=== PATIENT | female | born 1940 | race Caucasian/White ===

== ENCOUNTER 2023-12-23 11:37 | Outpatient (AMB) | payer MEDICARE, SELFPAY ==
--- NOTE | 2023-12-23 09:29 | A.OFFVIS_ITS ---
Vital Signs 12/23/23 11:55 Height 5 ft 5 in Weight 216 lb 0.848 oz BMI 35.9 BP 100/60 Blood Pressure Location Rt brachial Position Sitting Pulse 65 Pulse Source Pulse Oximeter Intake Visit Reasons: Type 2 /CONFIRMED Intake Note: NEW Patient presents today to re-establish treatment for Type 2 Diabetes Mellitus: Last Diabetic eye exam was on: 12/2023 [facility] Last Podiatry exam was on: Does not see a Labor Employment Associate Most recent HbA1c: 7.2%, 12/23/2023 Random Glucose- 138 mg/dL, Today Concrete Pipe Making Machine Operator Required: No Accompanied by: Self / Same As Patient Allergies bacitracin [From Triple Antibiotic] Allergy (Mild, Verified 12/23/23 11:56) Unknown hypochlorous acid [From Avenova] Allergy (Mild, Verified 12/23/23 11:56) Unknown neomycin [From Triple Antibiotic] Allergy (Mild, Verified 12/23/23 11:56) Unknown polymyxin B [From Triple Antibiotic] Allergy (Mild, Verified 12/23/23 11:56) Unknown sodium chloride [From Avenova] Allergy (Mild, Verified 12/23/23 11:56) Unknown HPI Comments Details: 83 YO female who is seen in consultation for T2DM at the request of PCP. Most recent A1c 12/23/2023 is 7.2%. This is down from her previous A1c of 8.3. Initially diagnosed with T2DM at least 5 years go. She was initially prediabetic. Was initially started on treatment with metformin 1000mg bid. Was started on Ozempic titrated to 2.0mg and was on this for a few years. This was stopped when her A1C went up at which time she was started on low dose insulin. Current regimen: Lantus 10 units Metformin a 1000 mg twice daily Checks sugars 3 times per day an hour after eating Average sugar: 133 30 day average no recent lows Treats lows with orange juice. None recently Family history of T2DM in son and uncle Has eyes checked yearly, last eye exam one year ago, scheduled for 01/30, denies retinopathy. Very occasional tingling in left foot (attributes to previous back surgery, no other neuropathy: no numbness or cramping last foot exam today, has pedicures every few months Denies nephropathy, not on [LAUREL/ARB]. Labs not available today Has HLD, on statin Last LDL done recently at [facility] Denies CAD Has sleep apnea on CPAP Diet: Balanced Weight: Lost 40 lb on Ozempic. 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 Mother No problems noted. Social History (Updated 12/23/23 @ 12:04 by AURELIO Herring) Unable to assess alcohol history related to: Unable to respond Patient Tobacco Use Status: Never used Tobacco Physical Exam Vital Signs: Last Vital Signs Pulse 65 12/23/23 11:55 BP 100/60 12/23/23 11:55 BMI result Body Mass Index 35.9 Absence of Cushingoid features. Absence of acromegalic features. Neck exam reveals nl size thyroid about 15 gms. No thyroid nodules palpable. No carotid bruits present. Lungs CTA. Heart S1 S2, Reg R/R. No M/R/ G. Skin exam reveals absence of vitiligo or acanthosis nigricans. Abdominal exam reveals Soft NT/ND with NA BS. No organomegaly present. Const Other: Absence of Cushingoid features. Absence of acromegalic features. Neck exam reveals nl size thyroid about 15 gms. No thyroid nodules palpable. I was not able to appreciate a carotid bruit. Lungs CTA. Heart S1 S2, Reg R/R. No M/R G. Skin exam reveals absence of vitiligo or acanthosis nigricans. No edema Visual exam of foot performed. No ulcerations or open lesions. No inter digit maceration or fissuring. No onychomycosis, no callouses. Sensation intact to monofilament exam. Vibratory sensation is diminished only with right great toe, normal rest of foot with 128 Hz tuning fork. Neck Other: . Extrem Other: Visual exam of foot performed. No ulcerations or open lesions. No onchomycosis, no callouses.Pulses 2 + distally Sensation intact to monofilament exam. Vibratory sensation sensed is intact with 128 Hz tuning fork Results AMB Hemoglobin A1c AMB Hemoglobin A1c 7.2 % Last Edit by AURELIO Herring on 12/23/23 12:12 Results Reviewed Results Reviewed: Laboratory Last Values Glucose (Clinic) 138 mg/dL (60-115) H 12/23/23 12:01 Hgb A1c (Clinic) 7.2 % (4.0-6.0) H 12/23/23 12:10 Assessment & Plan Assessment & Plan (1) Type 2 diabetes mellitus: Code(s): E11.9 - Type 2 diabetes mellitus without complications Category: Medical Plan: 83-year-old type 2 diabetic without microvascular/macrovascular complications presents for consult today with an A1c is 7.2%. This is in reasonable range given her age and she will continue Lantus 10 units along with metformin a 1000 twice daily. She was advised to continue to follow her sugars via freestyle Enedelia and if her morning readings started to creep up she could add 2 units e very 3 days until sugars were in the 04/08/2039 range. She is somewhat limited in her ability to exercise secondary to issues with low back pain but is able to do some yd work and housekeeping chores. Her meal plan is balanced Orders: Orders AMB Hemoglobin A1c Today E11.65 - Type 2 diabetes mellitus with hyperglycemia Patient Instructions: The patient was counseled to always carry a source of suga. The patient was counseled to wear closed toe shoes, never walk barefooted and to inspect the feet daily. For any signs of infection or open wound patient should notify PCP or go to urgent care. The patient was counseled to achieve a target A1C of 7.5% (165 avg). Fasting blood sugars should be 90-140 in the morning meals. Reviewed the relationship between poor diabetic control and the developement of complications Coding Level of Care Code New Pt Level 4 (66473) Complex EM visit Add On G2211 Diagnoses Type 2 diabetes mellitus E11.9 Time Spent (min) 30 Comment Time spent reviewing labs/provider notes, face to face, chart doc
[2023-12-23 11:55] VITALS: BP 100/60; PULSE 65; BMI 35.9
[2023-12-23 12:05] LABS: Glucose, Whole Blood 138 mg/dL (60-115)
== END 2023-12-23 12:45 | disposition home or self-care (01) ==
PROVIDERS: Visit Provider Nurse Practitioner Adult Health
DX: E11.65 Type 2 diabetes mellitus with hyperglycemia (principal); E11.9 Type 2 diabetes mellitus without complications
CPT/HCPCS: 99204; G2211

== ENCOUNTER → 2023-12-23 11:37 | Outpatient (BNVA) | payer MEDICARE, SELFPAY | PROVIDERS: Visit Provider Nurse Practitioner Adult Health | DX: E11.9 Type 2 diabetes mellitus without complications (principal) | CPT/HCPCS: 82947; 83036; 99202 ==

== ENCOUNTER 2024-07-06 13:02 | Outpatient (AMB) | payer MEDICARE, SELFPAY ==
--- NOTE | 2024-07-06 12:28 | A.OFFVIS_ITS ---
Vital Signs 07/06/24 13:04 Height 5 ft 5 in Weight 224 lb 13.944 oz BMI 37.4 BP 120/74 Blood Pressure Location Rt brachial Position Sitting Pulse 98 Pulse Source Pulse Oximeter Pulse Oximetry (%) 91 L Oxygen Delivery Method Room Air Intake Visit Reasons: DM Intake Note: Patient presents today for a follow-up on Type 2 Diabetes Mellitus: Last Diabetic eye exam was on: 12/2023, [facility] Last Podiatry exam was on: Does not see a Inner Diameter Grinder Tool Most recent HbA1c: 7.4%, 07/06/2024 Random Glucose- 137 mg/dL, Today Dehydrogenation Operator Required: No Accompanied by: Self / Same As Patient Allergies bacitracin [From Triple Antibiotic] Allergy (Mild, Verified 07/06/24 13:04) Unknown hypochlorous acid [From Avenova] Allergy (Mild, Verified 07/06/24 13:04) Unknown neomycin [From Triple Antibiotic] Allergy (Mild, Verified 07/06/24 13:04) Unknown polymyxin B [From Triple Antibiotic] Allergy (Mild, Verified 07/06/24 13:04) Unknown sodium chloride [From Avenova] Allergy (Mild, Verified 07/06/24 13:04) Unknown HPI Comments Details: 83 YO female who is seen in consultation for T2DM at the request of PCP. Most recent A1c 07/06/24 7.4%, 12/23/2023 is 7.2%. Initially diagnosed with T2DM prior to 2019. She was initially prediabetic. Was initially started on treatment with metformin 1000mg bid. Was started on Ozempic titrated to 2.0mg and was on this for a few years. This was stopped when her A1C went up at which time she was started on low dose insulin. She recently increased insulin to 12 units due to am readings greater than 150 Current regimen: Lantus 12 units Metformin 1000 mg twice daily Ozempic 0.25mg for 4 weeks freestyle thaddeus 2 average 108 she typically scans just once daily, took sugar once in the evening 132 Treats lows with orange juice. None recently Family history of T2DM in son and uncle Has eyes checked yearly, last eye exam 01/2024, denies retinopathy. Very occasional tingling in left foot (attributes to previous back surgery, no other neuropathy: no numbness or cramping last foot exam today, has pedicures every few months Had duplex done has bakers cyst back of left knee Denies nephropathy, not on [LAUREL/ARB]. 11/2023 EGFR 87 Has HLD, on statin Last LDL 11/2023 LDL 51 Denies CAD: no chest pain, dyspnea or symptoms of claudication had cardiac echo done a few weeks ago Has sleep apnea on CPAP: lately hasn't used due to neck pain, reports not sleeping well and plans to restart c/o neck pain may possibly due a cervical fusion Diet: Balanced Weight: Lost 40 lb on Ozempic. 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 Mother No problems noted. Social History Unable to assess alcohol history related to: Unable to respond Patient Tobacco Use Status: Never used Tobacco Physical Exam Vital Signs: Last Vital Signs Pulse 98 07/06/24 13:04 BP 120/74 07/06/24 13:04 Pulse Ox 91 L 07/06/24 13:04 Oxygen Delivery Method Room Air 07/06/24 13:04 BMI result Body Mass Index 37.4 Results AMB Hemoglobin A1c AMB Hemoglobin A1c 7.4 % Last Edit by AURELIO Herring on 07/06/24 13:29 Results Reviewed Results Reviewed: Laboratory Last Values Glucose (Clinic) 137 mg/dL (60-115) H 07/06/24 13:12 Assessment & Plan Assessment & Plan (1) Type 2 diabetes mellitus: Code(s): E11.9 - Type 2 diabetes mellitus without complications Category: Medical Plan 83 year old with know known macular/microvascular complications with a1c of 7.4%. Will increase ozempic to 5mg and greadually reduce lantus as needed. She was advised that should she need cervical surgery, Ozempic is typically held for 1 week and metformin for several days prior to surgery. The patient had an opportunity to ask questions regarding treatment plan. The patient expressed understanding and agreement with the above treatment plan. The patient is aware they should contact our office by phone for worsening glucose readings or for any low blood sugars which may warrant a change in diabetes medication. Compliance is encouraged with medications and any followup testing/consults which may have been ordered. Orders: Orders AMB Hemoglobin A1c Today E11.9 - Type 2 diabetes mellitus without complications Coding Level of Care Code Est Pt Level 3 (52243) Complex EM visit Add On G2211 Diagnoses Type 2 diabetes mellitus E11.9 Time Spent (min) 25 Comment Time spent reviewing labs/provider notes, face to face, chart doc
[2024-07-06 13:04] VITALS: BP 120/74; PULSE 98; O2SAT 91; BMI 37.4
[2024-07-06 13:17] LABS: Glucose, Whole Blood 137 mg/dL (60-115)
--- OUTSIDE RECORDS SUMMARY | 2024-07-06 14:19 | XMS_ITS | Encounter Summary ---
Author Organization [facility] Address [address] [place] [address] Care Team Providers Care Digital Performance Analyst Name Role Phone Narda Horan EXPLOSIVE OPERATOR BC Primary Care Provider Narda Horan [facility] Unavailable [phone] Wayne Santacruz Unavailable Reason for Visit * Reason Onset Date Comments Refill Request 04/28/2023 Encounter Details Date Type Department Care Team (Late st Contact Info) Description 04/28/2023 Refill [facility] [address] [place] [address] Narda Horan, [address] [phone] Refill Request Social History Tobacco Use Types Packs/Day Years Used Date Smoking Tobacco: Never Assessed Comments:Smoking Status:No c urrent tobacco use Comments Unknown Sex and Gender Information Value Date Recorded Sex Assigned at Female 01/13/2024 10:49 AM EST Legal Sex Female 2:18 PM EDT Gender Identity Female 01/13/2024 10:49 AM EST Sexual Orientation Straight 01/13/2024 10 :49 AM EST documented as of this encounter Miscellaneous Notes * Telephone Encounter - Mary Lou Leyva - 04/28/2023 12:48 PM EST Fax from pharmacy for: Furosemide 20mg Patient's Preferred Pharmacy: [id number] [address] [facility] [address] [place] [phone] Has the patient contacted the pharmacy for this prescription? yes Is the medication active on the patient's med list? Yes- What date was this Rx last filled? unknown How many refills were sent to the pharmacy? unknown Please note that if the criteria above indicates a refill may be available at the pharmacy, PSS should advise the patient to contact their pharmacy for refill. Does the above indicate a refill should be sent to the pharmacy? Yes- Rx is pended to the patient'srequested pharmacy. Routing request to triage. documented in this encounter Plan of Treatment Upcoming Encounters Date Type Department Care Team (Late st Contact Info) Description 09/19/2024 11:15 AM EDT Office Visit [address] [phone] Narda Horan, EXPLOSIVE OPERATOR [address] [address] 4 mo f/u documented as of this encounter Visit Diagnoses Not on filedocumented in this encounter Care Teams Digital Performance Analyst Relationship Specialty Start Date End Date Narad Horan, EXPLOSIVE OPERATOR [address] [place] [address] PCP - General 10/13/22 Narda Horan, EXPLOSIVE OPERATOR [address] [place] [address] PCP - Backup PCP Family Medicine 04/09/23 Wayne Santacruz [address] [place] [address] Ophthalmology 05/18/24 documented as of this encounter
--- OUTSIDE RECORDS SUMMARY | 2024-07-06 14:19 | XMS_ITS | Encounter Summary ---
Author Organization [facility] Address [address] [place] [address] Care Team Providers Care Counterintelligence Specialist Name Role Phone Narda Horan APRN Primary Care Provider Narda Horan APRN Unavailable [phone] Wayne Santacruz Unavailable Encounter Details Date Type Department Care Team (Late st Contact Info) Description 10/22/2007 Orders Only NON FC SA NON FC UNK Provider, Unknown Social History Tobacco Use Types Packs/Day Years Used Date Smoking Tobacco: Never Assessed Comments Unknown Sex and Gender Information Value Date Recorded Sex Assigned at Female 01/13/2024 10:49 AM EST Legal Sex Female 2:18 PM EDT Gender Identity Female 01/13/2024 10:49 AM EST Sexual Orientation Straight 01/13/2024 10 :49 AM EST documented as of this encounter Plan of Treatment Upcoming Encounters Date Type Department Care Team (Late st Contact Info) Description 09/19/2024 11:15 AM EDT Office Visit [facility] [address] [place] [phone] Narda Horan APRN [address] [place] [address] 4 mo f/u documented as of this encounter Visit Diagnoses Not on filedocumented in this encounter Care Teams Counterintelligence Specialist Relationship Specialty Start Date End Date Narda Horan APRN [address] [place] [address] PCP - General 10/13/22 Narda Horan APRN [address] [place] [id number] PCP - Backup PCP Family Medicine 04/09/23 Wayne Santacruz [address] [place] [id number] Ophthalmology 05/18/24 documented as of this encounter
--- OUTSIDE RECORDS SUMMARY | 2024-07-06 14:19 | XMS_ITS | Encounter Summary ---
Author Organization [facility] Address [address] [place] [address] Care Team Providers Care Sausage Maker Name Role Phone Narda Horan BALING MACHINE TENDER BC Primary Care Provider Narda Horan [facility] Unavailable [phone] Wayne Santacruz Unavailable Reason for Visit * Reason Onset Date Comments Refill Request 04/21/2023 Encounter Details Date Type Department Care Team (Late st Contact Info) Description 04/21/2023 Refill [facility] [address] [place] [address] Narda Horan, [address] [phone] Refill Request Social History Tobacco Use Types [...] Telephone Encounter - Mary Lou Leyva - 04/21/2023 11:46 AM EST Fax from pharmacy for: refill Patient's Preferred Pharmacy: [id number] [address] [facility] [address] [facility] [phone] Has the patient contacted the pharmacy for this prescription? yes Is the medication active on the patient's med list? Yes- What date was this Rx last filled? unknown How many refills were sent to the pharmacy? Unknown Please note that if the criteria above [...] Description 09/19/2024 11:15 AM EDT Office Visit [facility] [address] [place] [address] Narda Horan, BALING MACHINE TENDER [address] [address] 4 mo f/u documented as of this encounter Visit Diagnoses Not on filedocumented in this encounter Care Teams Sausage Maker Relationship Specialty Start Date End Date Narda Horan, BALING MACHINE TENDER [address] [place] [address] PCP - General 10/13/22 Narda Horan, BALING MACHINE TENDER [address] [place] [address] PCP - Backup PCP Family Medicine 04/09/23 Wayne Santacruz [address] [place] [address] Ophthalmology 05/18/24 documented as of this encounter
--- OUTSIDE RECORDS SUMMARY | 2024-07-06 14:19 | XMS_ITS | Encounter Summary ---
Author Organization [facility] Address [address] [place] [address] Care Team Providers Care Shingle Catcher Name Role Phone Narda Horan CATALYST IMPREGNATOR BC Primary Care Provider Narda Horan CATALYST IMPREGNATOR BC Unavailable [phone] Wayne Santacruz Unavailable Encounter Details Date Type Department Care Team (Late st Contact Info) Description 06/20/2023 Orders Only [address] [phone] Narda Horan, CATALYST IMPREGNATOR[address] [phone] Social History Tobacco Use Types Packs/Day Years [...] Description 09/19/2024 11:15 AM EDT Office Visit [address] [phone] Narda Horan, [address] [address] 4 mo f/u documented as of this encounter Visit Diagnoses Not on filedocumented in this encounter Care Teams Shingle Catcher Relationship Specialty Start Date End Date Narda Horan, PADMINI [address] [place] [address] PCP - General 10/13/22 Narda Horan, CATALYST IMPREGNATOR [address] [place] [address] PCP - Backup PCP Family Medicine 04/09/23 Wayne Santacruz [address] [place] [address] Ophthalmology 05/18/24 documented as of this encounter
--- OUTSIDE RECORDS SUMMARY | 2024-07-06 14:19 | XMS_ITS | Encounter Summary ---
Author Organization [facility] Address [address] [place] [address] Care Team Providers Care Orthotic Technician Name Role Phone Narda Horan APRN Primary Care Provider Narda Horan APRN Unavailable [phone] Wayne Santacruz Unavailable Encounter Details Date Type Department Care Team (Late st Contact Info) Description 06/21/2008 Orders Only NON FC SA NON FC [...] Description 09/19/2024 11:15 AM EDT Office Visit [facility] [address] [place] [phone] Narda Horan APRN [address] [place] [address] 4 mo f/u documented as of this encounter Visit Diagnoses Not on filedocumented in this encounter Care Teams Orthotic Technician Relationship Specialty Start Date End Date Narda Horan APRN [address] [place] [address] PCP - General 10/13/22 Narda Horan APRN [address] [place] [address] PCP - Backup PCP Family Medicine 04/09/23 Wayne Santacruz [address] [place] [id number] Ophthalmology 05/18/24 documented as of this encounter
--- OUTSIDE RECORDS SUMMARY | 2024-07-06 14:19 | XMS_ITS | Encounter Summary ---
Author Organization [facility] Address [address] [place] [address] Care Team Providers Care Nurse Practical Name Role Phone Narda Horan DIRECTOR ADVANCED BC Primary Care Provider Narda Horan [facility] Unavailable [phone] Wayne Santacruz Unavailable Encounter Details Date Type Department Care Team (Late st Contact Info) Description 04/27/2023 Orders Only [address] [phone] Narda Horan, [address] [phone] Medications Social History Tobacco Use Types Packs/Day Years [...] Description 09/19/2024 11:15 AM EDT Office Visit [address] [phone] Narda Horan, [place] [phone] mo f/u documented as of this encounter Visit Diagnoses Not on filedocumented in this encounter Care Teams Nurse Practical Relationship Specialty Start Date End Date Narda Horan, PADMINI [address] [place] [address] PCP - General 10/13/22 Narda Horan, DIRECTOR ADVANCED [address] [place] [address] PCP - Backup PCP Family Medicine 04/09/23 Wayne Santacruz [address] [place] [address] Ophthalmology 05/18/24 documented as of this encounter
--- OUTSIDE RECORDS SUMMARY | 2024-07-06 14:19 | XMS_ITS | Encounter Summary ---
Author Organization [facility] Address [address] [place] [address] Care Team Providers Care Ramp Service Employee Name Role Phone Narda Horan SCRAP CARRIER BC Primary Care Provider Narda Horan SCRAP CARRIER BC Unavailable [phone] Wayne Santacruz Unavailable Encounter Details Date Type Department Care Team (Late st Contact Info) Description 07/04/2023 Orders Only [address] [phone] Narda Horan, [address] [phone] Social History Tobacco Use Types Packs/Day Years [...] Description 09/19/2024 11:15 AM EDT Office Visit [address] [phone] Narda Horan, [address] [address] 4 mo f/u documented as of this encounter Visit Diagnoses Not on filedocumented in this encounter Care Teams Ramp Service Employee Relationship Specialty Start Date End Date Narda Horan, PADMINI [address] [place] [address] PCP - General 10/13/22 Narda Horan, SCRAP CARRIER [address] [place] [address] PCP - Backup PCP Family Medicine 04/09/23 Wayne Santacruz [address] [place] [address] Ophthalmology 05/18/24 documented as of this encounter
--- OUTSIDE RECORDS SUMMARY | 2024-07-06 14:19 | XMS_ITS | Clinical Summary ---
Author Organization [facility] Address [address] [place] [address] Care Team Providers Care Shade Classifier Name Role Phone Cristi Huggins MD Primary Care Provider [phone] Social History Tobacco Use Types Packs/Day Years Used Date Smoking Tobacco: Never Assessed Sex and Gender Information Value Date Recorded Sex Assigned at Not on file Gender Identity Not on file Sexual Orientation Not on file Job Start Date Occupation Industry Not on file Not on file Not on file Plan of Treatment Health Maintenance Due Date Last Done Comments Depression Screening 1954 Preventative Health Evaluation 1960 DTap / Tdap / Td (1 - Tdap) 1961 Shingrix-Zoster Vaccine (1 o f 2) 1992 Fall Risk Assessment 09/18/2007 Osteoporosis Screening (DEXA Scan) 09/18/2007 Pneumococcal Vaccine (1 of 1 - PCV) 09/18/2007 RSV Adult > 60+ Yrs or (1 - 1-dose 75+ series) 2017 COVID-19 Vaccine (2023-2 5 season) 2023 01/07/2021, 05/09/2020, 04/20/2020 Influenza Vaccine (#1) 2023 Hepatitis B Vaccines Aged Out No long er eligible based on patient's age to complete this topic RSV Ped < 20 months Aged Out No longe r eligible based on patient's age to complete this topic Care Teams Shade Classifier Relationship Specialty Start Date End Date Cristi Huggins MD [address] [place] [id number] PCP - General Family Medicine 01/19/14
--- OUTSIDE RECORDS SUMMARY | 2024-07-06 14:19 | XMS_ITS | Encounter Summary ---
Author Organization [facility] Address [address] [place], [place] [id number] Care Team Providers Care Tug Boat Captain Name Role Phone Narda Horan FINANCIAL OFFICER BC Primary Care Provider Narda Horan [facility] Unavailable [phone] Wayne Santacruz Unavailable Reason for Visit * Reason Onset Date Comments Refill Request 04/27/2023 Encounter Details Date Type Department Care Team (Late st Contact Info) Description 04/27/2023 Refill [facility] [address] [place] [address] Narda Horan, FINANCIAL OFFICER [address] [phone] Refill Request Social History Tobacco Use Types [...] Description 09/19/2024 11:15 AM EDT Office Visit [address] [phone] Narda Horan, FINANCIAL OFFICER [address] [place] [address] 4 mo f/u documented as of this encounter Visit Diagnoses Not on filedocumented in this encounter Care Teams Tug Boat Captain Relationship Specialty Start Date End Date Narda Horan, FINANCIAL OFFICER [address] [phone] PCP - General 10/13/22 Narda Horan, FINANCIAL OFFICER [address] [place] [address] PCP - Backup PCP Family Medicine 04/09/23 Wayne Santacruz [address] [place] [address] Ophthalmology 05/18/24 documented as of this encounter
--- OUTSIDE RECORDS SUMMARY | 2024-07-06 14:19 | XMS_ITS | Encounter Summary ---
Author Organization [facility] Address [address] [place] [address] Care Team Providers Care Cement Despatch Operator Name Role Phone Narda Horan [facility] Primary Care Provider Narda Horan [facility] Unavailable [phone] Wayne Santacruz Unavailable Reason for Visit * Reason Onset Date Comments Refill Request 08/12/2023 Encounter Details Date Type Department Care Team (Late st Contact Info) Description 08/12/[address] [phone] Narda Horan, [address] [address] Refill Request Social History Tobacco Use Types [...] encounter Miscellaneous Notes * Telephone Encounter - Guillermo Calixto - 08/12/2023 11:30 AM EDT Call from patient for: Accu-Chek FastClix Lancets [id number] [id number] [facility] [address] [facility] [address] [facility] [phone] Has the patient contacted the pharmacy for this prescription? {YES: Pt is completely out and need more mariaelena documented in this encounter Plan of Treatment Upcoming Encounters Date Type Department Care Team (Late st Contact Info) Description 09/19/2024 11:15 AM EDT Office Visit [address] [phone] Narda Horan, CLIENT SUPPORT MANAGER [address] [address] 4 mo f/u documented as of this encounter Visit Diagnoses Not on filedocumented in this encounter Care Teams Cement Despatch Operator Relationship Specialty Start Date End Date Narda Horan, CLIENT SUPPORT MANAGER [address] [place] [phone] PCP - General 10/13/22 Narda Horan, CLIENT SUPPORT MANAGER [address] [place] [address] PCP - Backup PCP Family Medicine 04/09/23 Wayne Santacruz [address] [place] [address] Ophthalmology 05/18/24 documented as of this encounter
--- OUTSIDE RECORDS SUMMARY | 2024-07-06 14:20 | XMS_ITS ---
Author Name [facility] Organization Unknown Results Test Name/Text Value Interpretation Date Range Source TSH 2.1uIU/ml Normal [id number] 0.5 - 4.8 [facility] egfr 74 Normal [id number] - [facility] BUN/CREAT RATIO 26 Above high normal [id number] 6 - 25 [facility] CO2 28mmol/L Normal [id number] 22 - 32 [facility] CREATININE 0.8mg/dL Normal [id number] 0.4 - 1.1 [facility] POTASSIUM 4.1mmol/L Normal [id number] 3.3 - 5.3 [facility] GLUCOSE 174mg/dL Above high normal [id number] 65 - 99 [facility] SODIUM 140mmol/L Normal [id number] 133 - 145 [facility] CALCIUM 9.4mg/dL Normal [id number] 8.6 - 10.5 [facility] BUN 21mg/dL Normal [id number] 8 - 23 [facility] CHLORIDE 100mmol/L Normal [id number] 96 - 108 [facility] UM. ALB/CREAT RATIO 6 Normal [id number] 0 - 30 [facility] URINE CREATININE 168mg/dL Normal [id number] 60 - 200 [facility] URINE MICROALBUMIN <12 Normal [id number] 0 - 23 [facility] Hemoglobin A1C 7.7%A1C Above high normal [id number] 4.3 - 6.1 [facility] RBC 4.5M/uL Normal [id number] 3.8 - 5.2 [facility] MCHC 32g/dl Normal [id number] 31 - 35 [facility] PLT 275K/uL Normal [id number] 150 - 450 [facility] MCH 29pg Normal [id number] 27 - 32 [facility] HEMOGLOBIN 12.9g/dL Normal [id number] 11.5 - 15.5 [facility] WBC 8.5K/uL Normal [id number] 3.6 - 11 [facility] HEMATOCRIT 40.6% Normal [id number] 35 - 47 [facility] RDW-CV 13.2% Normal [id number] 12 - 16.1 [facility] MCV 91fL Normal [id number] 80 - 100 [facility] DOUGLAS <12.0 Normal [id number] 0 - 23 [facility] UCR 144mg/dL Normal [id number] 60 - 200 [facility] NA 142mmol/L Normal [id number] 133 - 145 [facility] GLUC 130mg/dL Above high normal [id number] 65 - 99 [facility] CL 103mmol/L Normal [id number] 96 - 108 [facility] BUN 18mg/dL Normal [id number] 8 - 23 [facility] CALC 9.6mg/dL Normal [id number] 8.6 - 10.5 [facility] CO2 29mmol/L Normal [id number] 22 - 32 [facility] B/C 26 Above high normal [id number] 6 - 25 [facility] eGFR 87 Normal [id number] - [facility] K 4mmol/L Normal [id number] 3.3 - 5.3 [facility] CREAT 0.7mg/dL Normal [id number] 0.4 - 1.1 [facility] HDL 47mg/dL Below low normal [id number] 50 - 80 [facility] Non-HDL 67mg/dl Normal [id number] 0 - 130 [facility] TRIG 78mg/dL Normal [id number] 0 - 150 [facility] LDL 51mg/dL Normal [id number] 0 - 100 [facility] VLDL 16mg/dL Normal [id number] 5 - 40 [facility] CHOL 114mg/dL Normal [id number] 0 - 199 [facility] CHOL/HDL RATIO 2.[id number] [facility] A1C 7.9%A1C Above high normal [id number] 4.3 - 6.1 [facility] HGB 12.4g/dL Normal [id number] 11.5 - 15.5 [facility] HCT 39.8% Normal [id number] 35 - 47 [facility] POCT GLUCOSE 183mg/dL Normal [id number] 70 - 200 [facility] History of Medication Use Medication Directions Dispensed Refills Start Date End Date Status betamethasone acet,sod phos (CELESTONE) 6 mg/mL injection 6 mg 6 mg, intra-articular, One-time injection, 1 dose, Starting on Thu07/20/23 at 0915, Until Thu07/20/23 at 0915 023 2023 completed betamethasone acet,sod phos (CELESTONE) 6 mg/mL injection 12 mg 023 2022 completed hydroCHLOROthiazide (HYDRODIURIL) tablet Take 25 mg by mouth. active vitamin B-12 1,000 mcg tablet Take 1,000 mcg by mouth. 021 active Furosemide 20 MG Oral Tablet Furosemide 20 MG Oral TabletTAKE 1 TABLET BY MOUTH UP TO 3 TIMES A WEEK NEEDED Quantity: 20 Refills: Nikko Hurley APRN Start : 51-Wet-5568Qmamjd completed Ibuprofen 800 MG Oral Tablet Ibuprofen 800 MG Oral Tablet; 1 (one) Tablet three times daily, as needed for 7 days Quantity: 21 {Tablet}Refills: 0Ordered: [id number], KARAStart: 29-Sep-2019 End: 67-Hkv-7994Bdqcws: InactiveComments: Medication taken as needed. 020 2019 suspended meloxicam 15 mg tablet meloxicam 15 mg tablet; 1 (one) Tablet daily for 30 days Quantity: 30 {Tablet}Refills: 0Ordered: [id number], KARAStart: 01-Apr-2024 020 2019 active Nystop 249105 UNIT/GM External Powder Nystop 583371 UNIT/GM External PowderAPPLY ONE APPLICATION TO AFFECTED AREA DAILY Quantity: 15 Refills: 2SNikko love APRN Start : 4-Zol-4646Nwwgmr 019 completed Medrol 4 MG Oral Tablet Therapy Pack Medrol 4 MG Oral Tablet Therapy Pack; 1 (one) Packet use as directed per instructions in pack for 5 days Quantity: 21 {Packet}Refills: 0Ordered: [id number], KARAStart: 03-Jan-2019 End: 4-Bcg-5428Vfznni: Inactive 019 2018 suspended Atorvastatin Calcium 40 MG Oral Tablet Atorvastatin Calcium 40 MG Oral TabletTAKE 1 TABLET BY MOUTH DAILY Quantity: 90 Refills: 0SusherryNikko cherry APRN Start : 55-Liu-3473Bdpnna 018 completed sertraline (ZOLOFT) 100 mg tablet Take 100 mg by mouth daily. 018 active hydroCHLOROthiazide (HYDRODIURIL) 12.5 mg tablet daily. 018 active metoprolol succinate XL (TOPROL-XL) 50 mg 24 hr tablet daily. 018 active metoprolol succinate XL (TOPROL-XL) 50 mg 24 hr tablet Take 50 mg by mouth in the morning. 018 active hydroCHLOROthiazide 25 MG Oral Tablet hydroCHLOROthiazide 25 MG Oral TabletTAKE 1 TABLET BY MOUTH DAILY Quantity: 90 Refills: 1SNikko love APRN Start : 96-Wmj-5729Cbviyi 017 completed sertraline (ZOLOFT) 100 MG tablet Take 100 mg by mouth daily. 017 active oxyCODONE (ROXICODONE) 5 MG immediate release tablet Take by mouth. for pain 017 active Aspirin 81 MG Oral Tablet Delayed Release Aspirin 81 MG Oral Tablet Delayed Release; (81 MG)Status: Inactive suspende d atorvastatin (tablet) 40 mg co mpleted Atorvastatin Calcium 40 MG Oral Tablet Atorvastatin Calcium 40 MG Oral Tablet; (40 MG) active buPROPion HCl 75 MG Oral Tablet buPROPion HCl 75 MG Oral Tablet; 1 daily (75 MG)Status: Inactive suspended COLACE, 100MG (Oral Capsule) COLACE, 100MG (Oral Capsule); at bedtime (100 MG)Status: Inactive suspended Cosentyx (300 MG Dose) 150 MG/ML Subcutaneous Solution Prefilled Syringe Cosentyx (300 MG Dose) 150 MG/ML Subcutaneous Solution Prefilled Syringeonce every 4 weeks Refills: 7Lnunva0 x 1 ML Syringe completed Cosentyx Sensoready 300 Dose 150 MG/ML Subcutaneous Solution Auto-injector Cosentyx Sensoready 300 Dose 150 MG/ML Subcutaneous Solution Auto-injector; (150 MG/ML)Status: Inactive suspe nded escitalopram 20 mg tablet escitalopram 20 mg tablet; (20 mg) active FLUOXETINE HCL, 40MG (Oral Capsule) FLUOXETINE HCL, 40MG (Oral Capsule); 1 daily (40 MG)Status: Inactive suspended glipiZIDE XL 10 MG Oral Tablet Extended Release 24 Hour glipiZIDE XL 10 MG Oral Tablet Extended Release 24 Hour; 1 daily (10 MG)Status: Inactive suspended hydrochlorothiazide comp leted hydroCHLOROthiazide 12.5 MG Oral Tablet hydroCHLOROthiazide 12.5 MG Oral Tablet; (12.5 MG)Status: Inactive suspended insulin aspart (B3) pump cart insulin aspart (B3) pump cart active Lantus U-100 Insulin com pleted Lipitor LipitorStatus: Inactive suspended meloxicam 15 mg tablet meloxicam 15 mg tablet; (15 mg) active metFORMIN (GLUCOPHAGE) 1000 MG tablet Take 1,000 mg by mouth 2 (two) times a day with meals. active metformin (tablet) 1,000 mg comp leted metFORMIN HCl 1000 MG Oral Tablet metFORMIN HCl 1000 MG Oral Tablet; 1 two times daily (1000 MG) active metoprolol succinate (tablet extended release 24 hr) 50 mg completed Metoprolol Succinate ER 50 MG Oral Tablet Extended Release 24 Hour Metoprolol Succinate ER 50 MG Oral Tablet Extended Release 24 Hour; (50 MG) active Omeprazole 20 MG Oral Capsule Delayed Release Omeprazole 20 MG Oral Capsule Delayed Release; (20 MG)Status: Inactive suspende d OXYCODONE-ACETAMINOPHE N, 5-325MG (Oral Tablet) OXYCODONE-ACETAMINOPHE N, 5-325MG (Oral Tablet); 1 every four hours, as needed (5-325 MG)Status: InactiveComments: Medication taken as needed. suspended OXYCONTIN, 10MG (Oral Tablet Extended Release 12 Hour) OXYCONTIN, 10MG (Oral Tablet Extended Release 12 Hour); 1 two times daily (10 MG)Status: Inactive suspende d SENOKOT S, 8.6-50MG (Oral Tablet) SENOKOT S, 8.6-50MG (Oral Tablet); at bedtime (8.6-50 MG)Status: Inactive suspende d Sertraline HCl 100 MG Oral Tablet Sertraline HCl 100 MG Oral Tablet; (100 MG)Status: Inactive suspende d VALIUM, 5MG (Oral Tablet) VALIUM, 5MG (Oral Tablet); as needed (5 MG)Status: InactiveComments: Medication taken as needed. suspended Vitamin D (Cholecalciferol) Vitamin D (Cholecalciferol) active Allergies Allergen Reaction Severity Comment Documented Date Source Statu s AVANDIA Nausea [facility] [id number] JIMMY [facility]INT [facility] Problems Problem Status Onset Date Problem Type Date of Resolution Source Arthropathy of left shoulder active 2017-10-02 ProblemAct [facility] Arthritis of right acromioclavicular joint active EncounterDiagnosisAct [facility] Immunizations Vaccine Date Source Lot Number Status Fluzone High-Dose Quadrivale nt 0.7 ML Intramuscular Suspension Prefilled Syringe 04/20/2021 [facility] completed Shingrix 50 MCG Intramuscula r Suspension Reconstituted 02/06/2021 [facility] completed COVID-19 mRNA (PFIZER) 01/07/2021 [facility] [id number] co mpleted Influenza, high dose seasona l, preservative-free 01/07/2021 [facility] completed Shingrix 50 MCG Intramuscula r Suspension Reconstituted 08/07/2020 [facility] completed COVID-19 mRNA (PFIZER) 05/09/2020 [facility] co mpleted COVID-19 mRNA (PFIZER) 04/20/2020 [facility] [id number] co mpleted Fluzone High-Dose 0.5 ML Int ramuscular Suspension Prefilled Syringe 12/27/2019 [facility] [id number] com pleted Fluzone High-Dose 0.5 ML Int ramuscular Suspension Prefilled Syringe 12/14/2018 [facility] [id number] com pleted Fluzone High-Dose 0.5 ML Int ramuscular Suspension Prefilled Syringe 01/05/2018 [facility] [id number] com pleted Encounters Encounter Type Encounter Reason Primary Diagnosis Location Date Ambulatory [facility] 06/03/2024 Ambulatory [facility] 05/18/2024 Ambulatory [facility] 05/18/2024 Ambulatory [facility] 05/13/2024 Ambulatory [facility] 05/12/2024 Ambulatory JOSE,CHRONIC FATIGUE JOSE,CHRONIC FATIGUE P [facility] 05/11/2024 Ambulatory [facility] 02/10/2024 Ambulatory [facility] 01/26/2024 Ambulatory [facility] 01/15/2024 Ambulatory [facility] 01/13/2024 Ambulatory [facility] 12/18/2023 Ambulatory [facility] 11/30/2023 Ambulatory [facility] 11/02/2023 Ambulatory [facility] 09/28/2023 Ambulatory [facility] 09/28/2023 Ambulatory [facility] 08/21/2023 Ambulatory [facility] 08/20/2023 Ambulatory [facility] 08/20/2023 Ambulatory Primary osteoarthritis, right shoulder Primary osteoarthritis, right shoulder [facility] 07/20/2023 Ambulatory Primary osteoarthritis, right shoulder Primary osteoarthritis, right shoulder [facility] 07/20/2023 Ambulatory [facility] 05/11/2023 Ambulatory Follow-up Follow-up [facility] 04/13/2023 Ambulatory Trigger finger, right index finger Trigger finger, right index finger [facility] 03/31/2023 Ambulatory Follow-up Follow-up [facility] 01/12/2023 Ambulatory Impingement syndrome of right shoulder Impingement syndrome of right shoulder [facility] 11/17/2022 Ambulatory Impingement syndrome of right shoulder Impingement syndrome of right shoulder [facility] 11/17/2022 Ambulatory Pain Pain [facility] 11/17/2022 Ambulatory Trigger finger, right index finger Trigger finger, right index finger [facility] 11/12/2022 Ambulatory [facility] 06/23/2022 Ambulatory Impingement synd sandra of right shoulder [facility] 06/23/2022 Ambulatory Complete rotator cuff tear or rupture of right shoulder, not specified as traumatic [facility] 05/26/2022 Ambulatory Pain in right shoulder [facility] 04/28/2022 Ambulatory Pain in right shoulder [facility] 04/28/2022 Ambulatory Trigger finger, right middle finger [facility] 11/14/2021 Ambulatory Trigger finger, right middle finger [facility] 10/10/2021 Ambulatory Encounter for ot her preprocedural examination [facility] 09/28/2021 Ambulatory Trigger finger, right middle finger [facility] 2021 Ambulatory Trigger finger, left ring finger [facility] 07/30/2021 Ambulatory Post-op Follow-up [facility] 07/09 Ambulatory Follow-up [facility] 07/04/2021 Ambulatory Encounter for ot her preprocedural examination [facility] 06/29/2021 Ambulatory Trigger finger, left ring finger [facility] 06/06/2021 Ambulatory Pain [facility] 04/23/2021 Ambulatory Trigger finger, left ring finger [facility] 04/09/2021 Ambulatory Trigger finger, left ring finger [facility] 03/19/2021 Ambulatory Trigger finger, left ring finger [facility] 12/25/2020 Care Team Organization Name Specialty Phone Email Start Date End Da te [facility] Practice Nurse (EC[facility]) [facility] Primary Care 07/06/2024 [facility] 07[facility]02/2024 [facility]16 [facility] NIKKO HORAN Primary Care 11/30/2023 [facility] 11/30/2023 [facility] 11/10/2023 [facility] Nikko Horan Primary Care 11/02/2023 [facility] Nikko Horan Primary Care 08/20/2023 [facility] Nikko Horan Primary Care 05/11/2023 03/0 06/2023 [facility] Nikko Horan Primary Care 03/29/2023 [facility] Aung Laboy Primary Care 03/11/2023 [facility] Aung Laboy Primary Care 11/04/2022 11/12/2023 [facility] NIKKO HORAN Primary Care 022 [facility] Nikko Horan Primary Care 05/13/2021 05/13/2021 [facility] NIKKO HORAN Primary Care 021 11/14/[address] [facility] 11/30/2020 10/26/2023
--- OUTSIDE RECORDS SUMMARY | 2024-07-06 14:20 | XMS_ITS | Encounter Summary ---
Author Organization [facility] Address [address] [place] [address] Care Team Providers Care Hoist Mechanic Name Role Phone Narda Horan APRN Primary Care Provider Narda Horan APRN Unavailable [phone] Wayne Santacruz Unavailable Encounter Details Date Type Department Care Team (Late st Contact Info) Description 05/15/2014 Orders Only NON FC SA NON FC [...] Description 09/19/2024 11:15 AM EDT Office Visit [facility] [address] [place] [phone] Narda Horan APRN [address] [place] [address] 4 mo f/u documented as of this encounter Visit Diagnoses Not on filedocumented in this encounter Care Teams Hoist Mechanic Relationship Specialty Start Date End Date Narda Horan APRN [address] [place] [address] PCP - General 10/13/22 Narda Horan APRN [address] [place] [id number] PCP - Backup PCP Family Medicine 04/09/23 Wayne Santacruz [address] [place] [address] Ophthalmology 05/18/24 documented as of this encounter
--- OUTSIDE RECORDS SUMMARY | 2024-07-06 14:20 | XMS_ITS | Encounter Summary ---
Author Organization [facility] Address [address] [place] [address] Care Team Providers Care Rehab/Pre Vocational Counselor Name Role Phone Narda Horan APRN Primary Care Provider [phone] Encounter Details Date Type Department Care Team (Late st Contact Info) Description 09/20/2019 Telephone [facility] Urologic Surgery [address] [place] [phone] Bran Dixon MD Social History Tobacco Use Types Packs/Day Years Used Date Smoking Tobacco: Former Smokeless Tobacco: Never Comments:quit 40 years ago Alcohol Use Standard Drinks/Week Comments Yes 0 (1 standard drink = 0.6 oz pur e alcohol) occassional Comments Unknown Sex and Gender Information Value Date Recorded Sex Assigned at Not on file Legal Sex Female 1:20 PM EDT Gender Identity Not on file Sexual Orientation Not on file COVID-19 Exposure Response Date Recorded In the last month, have you been in contact with someone who was confirmed or suspected to have Coronavirus / COVID-19? No / Unsure 09/23/2019 1:00 PM EDT documented as of this encounter Miscellaneous Notes * Telephone Encounter - Jamie Beavers LPN - 09/20/2019 3:50 PM EDT Spoke with pt, she is aware that the has sent the order to [facility] as requested. * Telephone Encounter - Bran Dixon MD - 09/20/2019 3:48 PM EDT KUB ordered at [facility] per patient request * Telephone Encounter - Adriana Zelaya MA - 09/20/2019 11:14 AM EDT I left a VM for pt to call back she needs a KUB done prior to OV on 09/23/2019 documented in this encounter Plan of Treatment Not on file documented as of this encounter Visit Diagnoses Not on filedocumented in this encounter Care Teams Rehab/Pre Vocational Counselor Relationship Specialty Start Date End Date Narda Horan APRN [address] [place] [id number] PCP - General 01/17/19 documented as of this encounter
--- OUTSIDE RECORDS SUMMARY | 2024-07-06 14:20 | XMS_ITS | Encounter Summary ---
Author Organization [facility] Address [address] [place] [id number] Care Team Providers Care Insurance Business Analyst Name Role Phone Narda Horan [employer] Primary Care Provider Narda Horan [facility] Unavailable [phone] Wayne Santacruz Unavailable Reason for Visit * Reason Onset Date Comments Refill Request 05/02/2024 Encounter Details Date Type Department Care Team (Late st Contact Info) Description 05/02/2024 [facility]ill [facility] [address] [place] [address] Narda Horan, [address] [id number] Refill Request Social History Tobacco Use Types Packs/Day Years Used Date Smoking Tobacco: Former Cigarettes 0.5 6 1 967 - 1972 Comments:Smoking Status:No c urrent tobacco use Alcohol Use Standard Drinks/Week Comments Not Currently 0 (1 standard drink = 0.6 oz pur e alcohol) :Occasional alcohol use Comments Unknown Sex and Gender Information [...] Description 09/19/2024 11:15 AM EDT Office Visit [facility] [address] [facility] [place] [phone] Narda Horan, PADMINI [address] [place] [address] 4 mo f/u documented as of this encounter Goals Goal Patient Goal Type Associated Problems Recent Progress Patient-Stated? Author Blood Pressure < 140/90 Blood Pressure 130/70(05/18 3:35 PM EDT) Christine Todd, MARCEL Note: Above is your goal for blood pressure control. You may be able to prevent, reduce or eliminate the medication required for your blood pressure by regular measurement of your blood pressure at home, since home readings are often more reliable than measurements at the doctor? s office. You can also improve your blood pressure by getting regular exercise, keeping a normal weight, reducing your sodium/salt intake to 2000 mg/day, reducing caffeine and by limiting your alcohol intake. Men should limit consumption to no more than 2 drinks per day (beer, wine, or mixed drinks) and women should limit to one drink per day. Follow the DASH diet, a diet low in fat, cholesterol, red meat, and sweets. It emphasizes fruits, vegetables, and low-fat dairy foods. The DASH diet also includes whole-grain products, fish, poultry, and nuts. HEMOGLOBIN A1C % < 7 Result Component 7.7(02/24/20 24 11:15 AM EST) Christine Todd, MARCEL Note: Above is your goal for sugar control. Your risk for future diabetic complications such as blindness and amputation can be reduced by following your diabetic diet plan, and paying careful attention to self-monitoring your blood sugar and blood pressure at home. Please plan to check your blood sugar and blood pressure at the frequency suggested, and bring these numbers with you to your next scheduled visit. If you have difficulty reaching the goals which you have set for your diabetes your PCP can refer to one of our diabetes self-management support programs. A fasting blood sugar below 120 is ideal. documented as of this encounter Visit Diagnoses Not on filedocumented in this encounter Care Teams Insurance Business Analyst Relationship Specialty Start Date End Date Narda Horan APRN [address] [place] [address] PCP - General 10/13/22 Narda Horan APRN [address] [place] [address] PCP - Backup PCP Family Medicine 04/09/23 Wayne Santacruz [address] [place] [address] Ophthalmology 05/18/24 documented as of this encounter
--- OUTSIDE RECORDS SUMMARY | 2024-07-06 14:20 | XMS_ITS | Encounter Summary ---
Author Organization [facility] Address [address] [place] [address] Care Team Providers Care Gear Room Keeper Name Role Phone Narda Horan APRN Primary Care Provider Narda Horan APRN Unavailable [phone] Wayne Santacruz Unavailable Encounter Details Date Type Department Care Team (Late st Contact Info) Description 04/18/2013 Orders Only NON FC SA NON FC [...] Description 09/19/2024 11:15 AM EDT Office Visit [facility] [address] [place] [phone] Narda Horan APRN [address] [place] [address] 4 mo f/u documented as of this encounter Visit Diagnoses Not on filedocumented in this encounter Care Teams Gear Room Keeper Relationship Specialty Start Date End Date Narda Horan APRN [address] [place] [address] PCP - General 10/13/22 Narda Horan APRN [address] [place] [id number] PCP - Backup PCP Family Medicine 04/09/23 Wayne Santacruz [address] [place] [id number] Ophthalmology 05/18/24 documented as of this encounter
--- OUTSIDE RECORDS SUMMARY | 2024-07-06 14:20 | XMS_ITS | Clinical Summary ---
Author Organization [facility] Address [address] [place] [address] Care Team Providers Care Optoelectronics Engineer Name Role Phone Narda Horan APRN Primary Care Provider Narda Horan APRN Unavailable [phone] Wayne Santacruz Unavailable Allergies Active Allergy Reactions Criticality Noted Date Comments Aloe Vera 12/09/2017 Reactions: Edema Tjhvsmzvij-Ngespmkl-Jughamfd n 12/09/2017 TouchWorks Comment: [id number]: INfection Lactose 08/27/2018 Rosiglitazone 11/28/2017 Reactions: Nausea , TouchWorks Comment: [id number]: Nausea Medications Nystatin (Nystop) powder APPLY ONE APPLICATION TO AFFECTED AREA DAILY 15 2 06/23/19 18 Active Additional Information Patient not taking.Reported on 05/18/2024 METRONIDAZOLE, TOPICAL, (METROCREAM) 0.75 % cream APPLY AND GENTLY MASSAGE INTO AFFECTED AREA(S) ONCE DAILY. 1 each 3 05/30/19 22 Active Blood Glucose Monitoring Suppl (ONE TOUCH ULTRA 2) w/Device KitIndications:Hyp erlipidemia associated with type 2 diabetes mellitus (HCC) 1 each 1 (one) time each day Use as directed. 1 each 08/21/19 24 Active Lancets (OneTouch Delica Plus [id number]) Misc LancetIndications: Hyperlipidemia associated with type 2 diabetes mellitus (HCC) 1 each 1 (one) time each day Use as directed. 100 each 3 08/21/19 24 Active Vitamin D-3 125 MCG (5000 UT) Tab Take by mouth. Active Insulin Glargine (Lantus SoloStar) 100 UNIT/ML Solution Pen-injector Inject ten Units under the skin 1 (one) time each day DIRECTED. 9 mL 3 09/28/19 24 025 Active Continuous Glucose Sensor (FreeStyle Enedelia 14 Day Sensor) Device Inject 6 patches into the skin every 14 (fourteen) days Use as directed. 6 each 3 09/28/19 24 025 Active Continuous Glucose Regional Engagement Consultant (FreeStyle Enedelia 14 Day [place]) Device Use as directed. 1 each 1 09/29/19 24 Active Glucose Blood test stripIndications:H yperlipidemia associated with type 2 diabetes mellitus (HCC) one each by Other route - Use as directed. 100 strip 3 01/13/20 24 Active Insulin Pen Needle (BD Pen Needle Debbi 2nd Gen) 32G X 4 MM Pen Needle 1 each 1 (one) time each day. 100 each 3 01/13/20 24 026 Active Vitamin B-12 (VITAMIN B-12) 1000 MCG tablet Take one tablet (1,000 mcg total) by mouth 1 (one) time each day. 90 tablet 2 02/01/20 24 Active metFORMIN HCl (GLUCOPHAGE) 1000 MG tablet Take one tablet (1,000 mg total) by mouth 2 (two) times a day. 180 tablet 3 02/07/20 24 026 Active Atorvastatin Calcium (LIPITOR) 40 MG tabletIndications: Hyperlipidemia, unspecified hyperlipidemia type Take one tablet (40 mg total) by mouth 1 (one) time each day. 90 tablet 1 05/02/19 25 Active Metoprolol Succinate (TOPROL-XL) 50 MG 24 hr tablet Take one tablet (50 mg total) by mouth 1 (one) time each day. 90 tablet 05/02/19 25 Active Escitalopram (LEXAPRO) 20 MG tabletIndications: Recurrent major depressive disorder, in partial remission Take one tablet (20 mg total) by mouth 1 (one) time each day. 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 05/18/2024 Assessment & Plan (05/18/2024 4:20 PM EDT): Neural foraminal stenosis of thoracic spine 06/2019 Transient diplopia 12/27/2019 Need for influenza vaccination 12/27/2019 Ventral hernia 01/13/2019 Recurrent major depressive disorder, in partial remission 12/19/2018 Overview (05/18/2024): Impression - [id number]: cont on escitalopram cont on esciatlopram some symptoms remain but better Assessment & Plan (05/18/2024 4:20 PM EDT): Encounter for preventive care 12/14/2018 Osteoporosis screening 12/14/2018 Breast cancer screening by mammogram 12/14/2018 Obstructive sleep apnea 08/28/2018 Overview (04/12/2023): Description: Sleep Medicine Migration - Source Name: Obstructive sleep apnea (327.23) Periodic limb movement disorder 08/28/2018 Overview (04/12/2023): Description: Sleep Medicine Migration - Source Name: Periodic limb movement disorder; Notes: PLM 37/5 on Dx PSG JULY 2014 Sleep related hypoxia 08/28/2018 Overview (04/12/2023): Description: Sleep Medicine Migration - Source Name: Sleep related hypoxia History of kidney stones 08/28/2018 Overview (04/12/2023): Description: Sleep Medicine Migration - Source Name: History of kidney stones Class 2 severe obesity due t o excess calories with serious comorbidity and body mass index (BMI) of 37.0 to 37.9 in adult 08/28/2018 Overview (04/12/2023): Impression - [id number]: feeling well on ozempic; Description: Sleep Medicine Migration - Source Name: Obesity, morbid, BMI 40.0-49.9 Assessment & Plan (05/18/2024 4:20 PM EDT): Tonsillectomy 11/28/2017 Overview (04/12/2023): Description: 1950's Appendectomy 11/28/2017 Overview (04/12/2023): Description: 1961 Knee joint replacement status 11/28/2017 Overview (04/12/2023): Description: left 1995 right Mar 2014 History of bilateral oophorectomy 11/28/2017 Severe obstructive sleep apnea 11/28/2017 Overview (04/12/2023): Onset: 06/07/2014 Calculus of kidney 11/28/2017 Overview (04/12/2023): Description: Calcium oxalate Lactose intolerance 11/28/2017 Bruxism, sleep-related 11/28/2017 Overview (04/12/2023): Onset: 06/07/2014; Description: 4- Calculus of gallbladder w/o mention of cholecystitis or obstruction 11/28/2017 Osteoarthrosis, generalized, involving multiple sites 11/28/2017 History of abdominal hysterectomy 11/28/2017 Screen for colon cancer 11/28/2017 Bruit of right carotid artery 11/28/2017 Overview (02/07/2024): >>OVERVIEW FOR CAROTID BRUIT, UNSPECIFIED LATERALITY WRITTEN ON 04/12/2023 6:12 PM BY INTERFACE, PHCT PROBLEM LIST CONVERSION Description: LEFT 0-49 % on ultrasound 2019 Rosacea 11/28/2017 Intervertebral disc disorder with myelopathy, alycia mbar region 11/28/2017 Overview (04/12/2023): Description: Juan J [place] Fusion 3-06 repeat 6-11 Hypertension, benign 11/28/2017 Assessment & Plan (05/18/2024 4:20 PM EDT): Post-menopause 11/28/2017 Overview (02/07/2024): Normal bone density 4-24 Hyperlipidemia associated with type 2 diabetes daphne dennis 11/28/2017 Overview (04/12/2023): Transitioned From: Dyslipidemia due to type 2 diabetes mellitus Impression - [id number]: will look at A 1 C to clear for surgery Cont statin and dm medication Assessment & Plan (05/18/2024 4:20 PM EDT): Resolved Problems Problem Noted Date Diagnosed Date Resolved Date Trigger index finger of right hand 03/04/2023 05/18/2024 Immunocompromised state due to drug therapy 04/18/2020 05/18/2024 Overview (04/12/2023): Description: on cosentyx for psoriasis Edema of extremities 12/27/2019 025 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 05/20/2019 05/18/2024 Pre-op exam 11/28/2017 09/29/2023 Encounters Date Type Department Care Team Description 06/03/[address] [phone] Narda Horan, WINDOW SHADE CUTTER Medication Problem 06/01/2024 Refill [facility] [address] [place] [address] Narda Horan, WINDOW SHADE CUTTER Refill Request 05/31/2024 Orders Only [address] [place] [phone] Narda Horan, WINDOW SHADE CUTTER Medications 05/25/2024 Consult (Initial) NON FC SA NON FC UNK Provider, Unknown 05/18/2024 3:15 PM EDT [facility] [address] [place] [phone] Edema, leg; Claudication of both lower extremities 05/18/2024 2:45 PM EDT Office Visit [address] [phone] Narda Horan, WINDOW SHADE CUTTER Recurrent major depressive disorder, in partial remission (Primary Dx); Claudication of both lower extremities; Diabetes mellitus due to underlying condition with hyperglycemia, with long-term current use of insulin; Class 2 severe obesity due to excess calories with serious comorbidity and body mass index (BMI) of 37.0 to 37.9 in adult; Hyperlipidemia associated with type 2 diabetes mellitus; Hypertension, benign; Psoriasis 05/16/2024 Orders Only [address] [phone] Narda Horan, WINDOW SHADE CUTTER 05/13/[address] [phone] Narda Horan, WINDOW SHADE CUTTER Return Call (U/S Order Clarification ) 05/12/[address] [place] [phone] Narda Horan, WINDOW SHADE CUTTER Imaging Study 05/11/2024 Minor Procedure/Test NON FC SA NON FC UNK Provider, Unknown 05/03/2024 Refill [facility] [address] [facility] [place] [address] Narda Horan, WINDOW SHADE CUTTER BC Refill Request 05/02/2024 Refill [facility] [address] [place] [address] Narda Horan, WINDOW SHADE CUTTER BC Refill Request 05/02/2024 Refill [facility] [address] [place] [place] [address] Narda Horan, WINDOW SHADE CUTTER BC Refill Request 05/02/2024 Refill [facility] [address] [place] [address] Narda Horan, WINDOW SHADE CUTTER BC Refill Request from Last 3 Months Immunizations Name Administration Dates Next Due COVID-19, mRNA (Pfizer Pre F all 2022) Monovalent, 30 mcg/0.3 ml 01/07/2021,05/11/2020,05/09/2020,2020 Covid-19, mRNA (Pfizer Pre F all 2022) Bivalent, 30 mcg/0.3 ml familia-sucrose (12+) dose 02/18/2022 Influenza, Quad, Inactivated , Adjuvanted, Preser Fr 01/07/2021 Influenza,adjuvanted,trivale nt,PF (Fluad) 01/13/2024 Influenza,high dose seasonal,trivalent,PF (Fluzone HD) 01/07/2021,12/27/2019,12/14/2018,2017,03/21/2014 Influenza,high-dose, Quadrivalent 02/18/2022,02/2022 Influenza,seasonal,trivalent ,preserva tive (FLUZONE MDV) 12/24/2011 PCV-13 09/22/2016 PPV23 (Pneumovax) 10/29/2021,04/20/2009 Pneumococcal - 04/20/2013 Td (adult), adsorbed 06/04/2009,03/18/1993 Tdap 09/22/2016 Zoster (Shingrix) 02/06/2021,,08/07/2020,2019 Family History Medical History Relation Name Comments Cancer (?Type) Father cancer : Fath er;Bone ( pancreatic mets vs primary) Cancer - Pancreatic Father pancreat ic cancer : Father Seizures Father seizure disorde r : Father;Bladder Cancer Relation Name Status Comments Father Social History Tobacco Use Types Packs/Day Years Used Date Smoking Tobacco: Former Cigarettes 0.5 6 1 967 - 1972 Tobacco Cessation:Counseling Given: Not Answered Comments:Smoking Status:No current tobacco use Alcohol Use Standard Drinks/Week Comments Not Currently 0 (1 standard drink = 0.6 oz pur e alcohol) :Occasional alcohol use Comments Unknown Sex and Gender Information Value Date Recorded Sex Assigned at Female 01/13/2024 10:49 AM EST Legal Sex Female 2:18 PM EDT Gender Identity Female 01/13/2024 10:49 AM EST Sexual Orientation Straight 01/13/2024 10 :49 AM EST Last Filed Vital Signs Vital Sign Reading Time Taken Comments Blood Pressure 130/70 05/18/2024 3:35 PM EDT Pulse 72 05/18/2024 3:35 PM EDT Temperature 36.6 ??C (97.8 ??F) 05/18/2024 3:35 PM ED T Respiratory Rate 16 05/18/2024 3:35 PM EDT Oxygen Saturation 97% 05/18/2024 3:35 PM EDT Inhaled Oxygen Concentration - - Weight 101 kg (222 lb) 05/18/2024 3:35 PM EDT Height 164.3 cm (5' 4.7 ) 05/18/2024 3:35 PM EDT Body Mass Index 37.29 05/18/2024 3:35 PM EDT Plan of Treatment Upcoming Encounters Date Type Department Care Team (Late st Contact Info) Description 09/19/2024 11:15 AM EDT Office Visit [address] [phone] Narda Horan, WINDOW SHADE CUTTER [address] [place] [address] 4 mo f/u Health Maintenance Due Date Last Done Comments Eye/Retina Exam 1958 RSV (1 - 1-dose 75+ series) 2017 COVID-19 Vaccine ( season) 2023 02/18/2022, 01/07/2021, 05/11/2020, Additional history exists HA1C 08/24/2024 02/24/2024, 11/07, 11/02/2023, Additional history exists LDL Cholesterol 11/22/2024 11/23/2023, 02/07, 11/04/2022, Additional history exists GFR 02/23/2025 02/24/2024, 11/07, 03/04/2023, Additional history exists Microalbumin 02/23/2025 02/24/2024, 11/07, 11/04/2022, Additional history exists DTaP/Tdap/Td (2 - Td or Tdap) 09/22/2026 09/22/2016, 06/04/2009, 03/18/1993 Upper Endoscopy Discontinued 03/18/2019, 03/18/2019 Colonoscopy Discontinued 04/18/2020, 03/18/2019 Colon Cancer Screening Discontinued 04/20/2020 Zoster (Shingrix) Completed 02/06/2021, , 08/07/2020, Additional history exists EKG Discontinued 09/30/2021, 06/07, 06/20/2021, Additional history exists Pneumococcal 50+ years Completed , 09/22/2016, 04/20/2013, Additional history exists Bone Density Completed 07/04/2023 Mammogram/Breast Imaging Discontinued 024, 06/26/2020, 06/26/2020, Additional history exists Influenza Completed 01/13/2024, 02/06, 04/20/2021, Additional history exists HPV Vaccine Aged Out No longer eligi ble based on patient's age to complete this topic Hep A Aged Out No longer eligi ble based on patient's age to complete this topic Hep B Aged Out No longer eligi ble based on patient's age to complete this topic Hib Aged Out No longer eligi ble based on patient's age to complete this topic Meningococcal ACWY Aged Out No longer eligible based on patient's age to complete this topic Pap Smear Discontinued Physical Discontinued Zoster (Zostavax) Discontinued Goals Goal Patient Goal Type Associated Problems Recent Progress Patient-Stated? Author Blood Pressure < 140/90 Blood Pressure 130/70(05/18 3:35 PM EDT) Christine Todd, RN Note: Above is your goal for blood [...] Component 7.7(02/24/20 24 11:15 AM EST) Christine Todd RN Note: Above is your goal for sugar [...] fasting blood sugar below 120 is ideal. Procedures Procedure Name Priority Date/Time Associated Diagnosis Comments US VENOUS DUPLEX SCAN EXTREMITY VEINS COMPL BILAT (LEGS) STUDY Routine 05/18/2024 3:30 PM EDT Edema, leg Claudication of both lower extremities SLEEP STUDY 05/11/2024 BASIC METABOLIC PANEL WITH (GFR) Routine 02/24/2024 11:15 AM EST Diabetes mellitus due to underlying condition with hyperglycemia, with long-term current use of insulin ALBUMIN (MICROALBUMIN), RANDOM URINE, WITH CREATININE Routine 02/24/2024 11:15 AM EST Diabetes mellitus due to underlying condition with hyperglycemia, with long-term current use of insulin HEMOGLOBIN A1C Routine 02/24/2024 11:15 AM EST Diabetes mellitus due to underlying condition with hyperglycemia, with long-term current use of insulin LIPID PANEL WITH REFLEX TO DIRECT LDL Routine 11/23/2023 12:15 PM EDT Diabetes mellitus due to underlying condition with hyperglycemia, with long-term current use of insulin DUAL ENERGY DEXA BONE DENSITY ONE/MORE SITES AXIAL SKEL 07/04/2023 SCREENING MAMMOGRAPHY BILATERAL, 2 VIEWS EACH BREAST, INCLUDING CAD 07/04/2023 EKG 09/30/2021 12:00 AM EDT COLONOSCOPY Routine 04/18/2020 9:30 AM EST EGD (UPPER GI ENDOSCOPY) 03/18/2019 1:44 PM EST from Last 3 Months or Most Recently Relevant to Health Maintenance Results * US VENOUS DUPLEX SCAN EXTREMITY VEINS COMPL BILAT (LEGS) STUDY (05/18/2024 3:30 PM EDT) 05/18/2024 3:15 PM EDT Narrative [facility] - 05/19/2024 5:02 PM EDT CLINICAL INDICATION: Localized edema. Peripheral vascular disease, unspecified. Claudication. TECHNIQUE: Real-time duplex ultrasound scan of the bilateral lower extremity veins integrating B-mode two-dimensional vascular structure, Doppler spectral analysis, color flow Doppler imaging and compression. COMPARISON: No relevant prior studies available. FINDINGS: RIGHT DEEP VEINS: ??Unremarkable. ??No DVT in the right common femoral, femoral, proximal deep femoral, popliteal, posterior tibial, or peroneal veins. ??The veins demonstrate normal color flow, are normally compressible, with normal phasic flow and/or augmentation response. RIGHT SUPERFICIAL VEINS: ??Unremarkable. ??No thrombus in the visualized proximal right greater saphenous vein. LEFT DEEP VEINS: No DVT in the left common femoral, femoral, proximal deep femoral, popliteal, posterior tibial, or peroneal veins. ??The veins demonstrate normal color flow, are normally compressible, with normal phasic flow and/or augmentation response. LEFT SUPERFICIAL VEINS: ??Unremarkable. ??No thrombus in the visualized proximal left greater saphenous vein. SOFT TISSUES: ??Heterogeneous hypoechoic structure in the left popliteal fossa measuring 2.0 x 1.0 x 1.8 cm. IMPRESSION: 1. No thrombus in the visualized bilateral lower extremity veins. 2. Heterogeneous hypoechoic structure in the left popliteal fossa measuring 2.0 x 1.0 x 1.8 cm is probably a Priest's cyst. Austen Berger MD 05/19/2024 5:02 PM (/[place]) Procedure Note Austen Berger??Damir - 05/19/2024 CLINICAL INDICATION: Localized edema. Peripheral vascular disease, unspecified. Claudication. TECHNIQUE: Real-time duplex ultrasound scan of the bilateral lower extremity veinsintegrating B-mode two-dimensional vascular structure, Doppler spectralanalysis, color flow Doppler imaging and compression. COMPARISON: No relevant prior studies available. FINDINGS: RIGHT DEEP VEINS: Unremarkable. No DVT in the right common femoral,femoral, proximal deep femoral, popliteal, posterior tibial, or peronealveins. The veins demonstrate normal color flow, are normallycompressible, with normal phasic flow and/or augmentation response. RIGHT SUPERFICIAL VEINS: Unremarkable. No thrombus in the visualizedproximal right greater saphenous vein. LEFT DEEP VEINS: No DVT in the left common femoral, femoral, proximal deepfemoral, popliteal, posterior tibial, or peroneal veins. The veinsdemonstrate normal color flow, are normally compressible, with normalphasic flow and/or augmentation response. LEFT SUPERFICIAL VEINS: Unremarkable. No thrombus in the visualizedproximal left greater saphenous vein. SOFT TISSUES: Heterogeneous hypoechoic structure in the left poplitealfossa measuring 2.0 x 1.0 x 1.8 cm. IMPRESSION: 1. No thrombus in the visualized bilateral lower extremity veins. 2. Heterogeneous hypoechoic structure in the left popliteal fossameasuring 2.0 x 1.0 x 1.8 cm is probably a Priest's cyst. Austen Berger MD 05/19/2024 5:02 PM ([place]astern) Narda Horan WINDOW SHADE CUTTER IMG US ORDERABLES Final Result Performing Organization Address [facility] Co de Phone Number [facility] * SLEEP STUDY (05/11/2024) us Unknown Provider PROCEDURES Final Result * (ABNORMAL) HEMOGLOBIN A1C (02/24/2024 11:15 AM EST) Hemoglobin A1C 7.7(H) 4.3 - 6.1 %A1C [facility] Comment: 5.7-6.4 Increased Risk of Diabetes >6.4 Consistent with Diabetes The [place] [employer] recommends a goal of less than 7% for diabetic patients. 02/24/2024 11:1 5 AM EST 02/24/2024 9:16 PM EST Narrative [facility] - 02/24/2024 9:43 PM EST Testing performed at [facility], [address] [place] [address], , Poultry Farm Supervisor: Dilcia Kapoor MD CL#[id number] Narda Horan W[employer] SHADE CUTTER LABORATORY Final R esult Performing Organization Address [facility] de Phone Number [facility] [address] [place] [address], * ALBUMIN (MICROALBUMIN), RANDOM URINE, WITH CREATININE (02/24/2024 11:15 AM EST) Albumin (Urine) <12 0 - 23 mg/L [facility] Creatinine (Urine) 168 60 - 200 mg/dL [facility] Microalbumin/Cr eat Ratio (Urine) 6 0 - 30 [facility] 02/24/2024 11:1 5 AM EST 02/24/2024 9:16 PM EST Narrative [facility] - 02/24/2024 11:02 PM EST Microalbumin <12.0, Alb/Creat Ratio Invalid. Testing performed at [facility], [address] [place] [address], , Poultry Farm Supervisor: Dilcia Kapoor MD CL#[id number] Narda Horan [facility] Final R esult Performing Organization Address [facility]/ZIP Co de Phone Number [facility] [address] [place] [address], [place] [phone] * (ABNORMAL) BASIC METABOLIC PANEL WITH (GFR) (02/24/2024 11:15 AM EST) Pathologist [facility] Sodium 140 133 - 145 mmol/L [facility] Potassium 4.1 3.3 - 5.3 mmol/L [facility] Chloride 100 96 - 108 mmol/L [facility] Bicarbonate 28 22 - 32 mmol/L [facility] Urea Nitrogen Blood (BUN) 21 8 - 23 mg/dL [facility] Creatinine 0.8 0.4 - 1.1 mg/dL [facility] GFR 74 >=60 [facility] BUN/Creatinine Ratio 26(H) 6 - 25 [facility] Glucose 174(H) 65 - 99 mg/dL [facility] Comment:Fasting Reference In terval Calcium 9.4 8.6 - 10.5 mg/dL [facility] 02/24/2024 11:1 5 AM EST 02/24/2024 9:16 PM EST Narrative [facility] - 02/24/2024 11:03 PM EST FASTING: NO Testing performed at [facility], [address] [place] [address], , Poultry Farm Supervisor: Dilcia Kapoor MD CL#[id number] Narda Horan [facility] Final R esult Performing Organization Address [facility]/ZIP Co de Phone Number [facility] [address] [place] [address], * (ABNORMAL) LIPID PANEL WITH REFLEX TO DIRECT LDL (11/23/2023 12:15 PM EDT) Cholesterol 114 0 - 199 mg/dL [facility] Triglyceride 78 0 - 150 mg/dL [facility] VLDL Cholesterol 16 5 - 40 mg/dL [facility] HDL Cholesterol 47(L) 50 - 80 mg/dL [facility] LDL Cholesterol 51 0 - 100 mg/dL [facility] Cholesterol Non-HDL 67 0 - 130 mg/dl [facility] CHOL/HDL Ratio 2.4 [facility] 11/23/2023 12:1 5 PM EDT 11/23/2023 9:39 PM EDT Narrative [facility] - 11/23/2023 10:42 PM EDT Track Order?->No Release result to patient->Immediate FASTING: NO Fasting reference interval. ??[employer] Lip[facility] testing results require a 12 hour fasting specimen. ??Use caution when interpreting non-fasting cholesterol and triglyceride results. Testing Performed at: [facility], [address] [place] [address], , Poultry Farm Supervisor: Dilcia Kapoor MD CL#[id number] us Narda Horan APRN LABORATORY Final R esult [facility] [address] [place] [address]. [place] [address], [place] [phone] * SCREENING MAMMOGRAPHY BILATERAL, 2 VIEWS EACH BREAST, INCLUDING CAD (07/04/2023) 07/04/2023 Narrative 07/04/2023 Ordered by an unspecified provider. us Unknown Provider GENERAL IMAGING- OTHER Final Re sult * DUAL ENERGY DEXA BONE DENSITY ONE/MORE SITES AXIAL SKEL (07/04/2023) 07/04/2023 Narrative 07/04/2023 Ordered by an unspecified provider. us Unknown Provider GENERAL IMAGING- OTHER Final Re sult * EKG (09/30/2021 12:00 AM EDT) Narrative 09/30/2021 12:00 AM EDT Ordered by an unspecified provider. us Unknown Provider CARDIOVASCULAR-NO INBASKET RTG Final Result * COLONOSCOPY (04/18/2020 9:30 AM EST) COLONOSCOPY, RESULT Normal PHCT CONVERSIONS 04/18/2020 9:30 AM EST us Narda CERRATO PROCEDURES Final R esult PHCT CONVERSIONS * EGD (UPPER GI ENDOSCOPY) (03/18/2019 1:44 PM EST) Narrative 03/18/2019 1:44 PM EST Ordered by an unspecified provider. us Unknown Provider PROCEDURES Final Result from Last 3 Months or Most Recently Relevant to Health Maintenance Insurance [employer] MEDICARE (RISK) Care Teams Optoelectronics Engineer Relationship Specialty Start Date End Date Narda Horan APRN [address] [place] [address] PCP - General 10/13/22 Narda Horan APRN BC [address] [place] [address] PCP - Backup PCP Family Medicine 04/09/23 Wayne Santacruz [address] [place] [phone] Ophthalmology 05/18/24
--- OUTSIDE RECORDS SUMMARY | 2024-07-06 14:20 | XMS_ITS | Clinical Summary ---
Author Organization [facility] Address [address] [place] [address] Care Team Providers Care Potato Chip Sacking Machine Operator Name Role Phone Narda Horan APRN Primary Care Provider Allergies Active Allergy Reactions Criticality Noted Date Comments Aloe Rash/Dermatitis Low 02/25/2016 Lidocaine Unknown/Patient and Family Unable to Define Medium 07/18/2016 Bacitracin Unknown/Patient and Family Unable to Define Medium 12/07/2012 Other reaction(s): causes infection- increaes irrit Colistimethate Unknown/Patient and Family Unable to Define Medium 12/07/2012 Other reaction(s): causes infection- increaes irrit Gramicidin Unknown/Patient and Family Unable to Define Medium 12/07/2012 Other reaction(s): causes infection- increaes irrit Lactose GI Intolerance/Nausea/Vomit ing Medium 07/27/2017 Miconazole Unknown/Patient and Family Unable to Define Medium 07/18/2016 Other reaction(s): Unknown/Patient and Family Unable to Define Morphine Unknown/Patient and Family Unable to Define High 07/18/2016 Neomycin Unknown/Patient and Family Unable to Define Medium 12/07/2012 Other reaction(s): causes infection- increaes irrit Polymyxin B Unknown/Patient and Family Unable to Define Medium 12/07/2012 Other reaction(s): causes infection- increaes irrit Rosiglitazone GI Intolerance/Nausea/Vomit ing Low 07/18/2016 Other reaction(s): GI Intolerance/Nausea/Vomi ting Medications atorvastatin (LIPITOR) 40 MG tablet 0 7 Active glipiZIDE (GLUCOTROL XL) 10 mg 24 hr tablet 0 7 Active hydrochlorothia zide (MICROZIDE) 12.5 MG capsule Take 12.5 mg by mouth daily. 0 7 Active metoPROLOL SUCCINATE (TOPROL-XL) 50 MG 24 hr tablet Take 50 mg by mouth daily. 0 7 Active oxyCODONE (ROXICODONE) 5 MG immediate release tablet Take by mouth. for pain 0 7 Active sertraline (ZOLOFT) 100 MG tablet Take 100 mg by mouth daily. 0 7 Active metFORMIN (GLUCOPHAGE) 1000 MG tablet Take 1,000 mg by mouth 2 (two) times a day with meals. Active aspirin enteric coated (ECOTRIN LOW STRENGTH) 81 MG EC tablet Take 81 mg by mouth daily. Active IRON, FERROUS GLUCONATE, PO Take by mouth. A ctive buPROPion (WELLBUTRIN) 75 MG tablet 0 9 Active COSENTYX SENSOREADY, 300 MG, 150 MG/ML Solution Auto-injector 9 Active amoxicillin (AMOXIL) 500 MG capsule 0 Active hydrOXYzine HCl (ATARAX) 10 MG tablet hydroxyzine HCl 10 mg tablet Active Social History Tobacco Use Types Packs/Day Years [...] on file Sexual Orientation Not on file Last Filed Vital Signs Vital Sign Reading Time Taken Comments Blood Pressure - - Pulse - - Temperature - - Respiratory Rate - - Oxygen Saturation - - Inhaled Oxygen Concentration - - Weight 113 kg (250 lb) 09/23/2019 12:58 PM EDT Height 167.6 cm (5' 6 ) 09/23/2019 12:58 PM EDT Body Mass Index 40.35 09/23/2019 12:58 PM EDT Plan of Treatment Health Maintenance Due Date Last Done Comments COVID-19 Vaccine (#1) 09/18/1945 Quantiferon Gold TB 1952 DTaP/Tdap/Td Vaccines (1 - Tdap) 1961 Pneumococcal Vaccines 50+ (1 of 2 - PCV) 1961 Zoster (Shingles) Vaccine (1 of 2) 1961 DXA Bone Density (Females,Ag es 65 and older) 09/18/2007 RSV Vaccine 60 years and old er and Patients (1 - 1-dose 75+ series) 2017 Influenza Vaccine 10/08/2023 Hepatitis B Vaccines Aged Out No long er eligible based on patient's age to complete this topic Insurance [facility] MEDICARE Member Subscriber Plan / Payer (Ef fective 2018-Present) Name:Clarissa Glynn Relation to Subscriber:Self Name:Clarissa Glynn Payer ID:[id number] (NAIC) Type:Not on file Address: [place] [id number] [facility] MEDICARE Care Teams Potato Chip Sacking Machine Operator Relationship Specialty Start Date End Date Narda Horan APRN [address] [place] [address] PCP - General 01/17/19
--- OUTSIDE RECORDS SUMMARY | 2024-07-06 14:20 | XMS_ITS | Encounter Summary ---
Author Organization [facility] Address [address] [place] [address] Care Team Providers Care Parole Hearing Officer Name Role Phone Narda Horan GLAZE SPRAYER BC Primary Care Provider Narda Horan [facility] Unavailable [phone] Wanye Santacruz Unavailable Reason for Visit * Reason Onset Date Comments Refill Request 06/01/2024 Encounter Details Date Type Department Care Team (Late st Contact Info) Description 06/01/2024 [facility] [address] [place] [address] Narda Horan, [address] [id number] Refill Request Social History Tobacco Use Types [...] Description 09/19/2024 11:15 AM EDT Office Visit [facility] [address] [facility] [place] [phone] Narda Horan, PADMINI [address] [place] [address] 4 mo f/u documented as of this [...] on filedocumented in this encounter Care Teams Parole Hearing Officer Relationship Specialty Start Date End Date Narda Horan APRN [address] [place] [address] PCP - General 10/13/22 Narda Horan APRN [address] [place] [address] PCP - Backup PCP Family Medicine 04/09/23 Wayne Santacruz [address] [place] [address] Ophthalmology 05/18/24 documented as of this encounter
--- OUTSIDE RECORDS SUMMARY | 2024-07-06 14:20 | XMS_ITS ---
Author Organization [facility] Care Team Providers Care Registration Scheduling Specialist Name Role Phone Joseph Johns Unavailable Unavailable Marlon Alvarenga Unavailable Unavailable Allergies and adverse reactions Code CodeSystem Substance Reaction Severity StartDate Concern Status 7052 RXNORM Morphine Severe 03/23/2014 active 6211 RXNORM Lactose (Intolerance) Moderate 03/23/2014 active Avandia Nausea (code- 815640630, SNOMED CT) Moderate 03/23/2014 active Care Team Name Role Address Phone Organization Dates Joseph Johns Attending Physician [address] [place], [address], [place] (Office[place] : [facility] 03/23/2014 - 04/02/2014 Marlon Alvarenga Attending Physician [address] [place] [address], [address], [place] (Office): : [facility] 03/23/2014 - 04/02/2014 Immunizations Immunization Status Vaccine Details Vaccine Code CodeSystem Date Notes Influenza completed Influenza, high-dose, split virus, trivalent, injectable, preservative free 135 CVX created date: 03/24/2014 administer ed date: 03/21/2014 Educated by Mejia ROD on 03/24/2014 Pneumovax Dose 1 completed pneumococcal polysaccharide vaccine, 23 valent 33 CVX created date: 03/24/2014 administer ed date: 04/20/2009 Educated by Mejia RN on 03/24/2014 TB 1 Step Mantoux (PPD) completed tuberculin skin test; purified protein derivative solution, intradermal lotNumber: [id number] expiry: 04/09/2015 Mfg: [employer] Given 0.1 ml Right Forearm intradermally 96 CVX created date: 03/24/2014 consent date: 03/24/2014 administer ed date: 03/24/2014 Mental Status Section Date Assessment Total Score Description 04/02/2014 BIMS 15 cognitively int act PHQ-9 05 mild depression 03/30/2014 BIMS 15 cognitively int act PHQ-9 05 mild depression Reason for Referral No Reasons for Referral Entered Social History Social History Observation Description Start Date End Date Code Code System Current Smoking Status Tobacco smoking consumption unknown 547763079 SNOMED CT Sex Assigned At Female 1940 92686-5 [facility] Vital Signs Code Code System Vitals Name Values and Units Timing Information 2339-0 [facility] Blood Sugar Value=1.0 Units=mg/dL 83156-3 [facility] Pain Level Value=6.0 04/02/2014 8462-4 [facility] Blood Pressure-Diastolic Value=68 Un its=mmHg 04/02/2014 8480-6 [facility] Blood Pressure-Systolic Bbvig=765 Un its=mmHg 04/02/2014 8867-4 [facility] Heart rate Value=80.0 Units=/min 52125-5 [facility] Weight Qpsnd=902.0 Units=Lbs 9279-1 [facility] Respiratory Rate Value=18.0 Units=/m in 03/30/2014 8310-5 [facility] Body Temperature Value=98.0 Units=?? F 03/30/2014 04400-0 [facility] O2 % dC Oximetry Value=96.0 Units= % 03/30/2014 8302-2 [facility] Height Value=65.0 Units=Inches 03/24/2014
--- OUTSIDE RECORDS SUMMARY | 2024-07-06 14:20 | XMS_ITS | Encounter Summary ---
Author Organization [facility] Address [address] [place] [address] Care Team Providers Care Bark Tanner Name Role Phone Narda Horan APRN Primary Care Provider Narda Horan APRN Unavailable [phone] Wayne Santacruz Unavailable Encounter Details Date Type Department Care Team (Late st Contact Info) Description 07/29/2011 Orders Only NON FC SA NON FC [...] Description 09/19/2024 11:15 AM EDT Office Visit [facility] [address] [place] [phone] Narda Horan APRN [address] [place] [address] 4 mo f/u documented as of this encounter Visit Diagnoses Not on filedocumented in this encounter Care Teams Bark Tanner Relationship Specialty Start Date End Date Narda Horan APRN [address] [place] [address] PCP - General 10/13/22 Narda Horan APRN [address] [place] [address] PCP - Backup PCP Family Medicine 04/09/23 Wayne Santacruz [address] [place] [address] Ophthalmology 05/18/24 documented as of this encounter
--- OUTSIDE RECORDS SUMMARY | 2024-07-06 14:20 | XMS_ITS | Encounter Summary ---
Author Organization [facility] Address [address] [place] [address] Care Team Providers Care Granite Setter Name Role Phone Narda Horan APRN Primary Care Provider Narda Horan APRN Unavailable [phone] Wayne Santacruz Unavailable Encounter Details Date Type Department Care Team (Late st Contact Info) Description 2016 Orders Only NON FC SA NON FC [...] Description 09/19/2024 11:15 AM EDT Office Visit [facility] [address] [place] [phone] Narda Horan APRN [address] [place] [address] 4 mo f/u documented as of this encounter Visit Diagnoses Not on filedocumented in this encounter Care Teams Granite Setter Relationship Specialty Start Date End Date Narda Horan APRN [address] [place] [address] PCP - General 10/13/22 Narda Horan APRN [address] [place] [address] PCP - Backup PCP Family Medicine 04/09/23 Wayne Santacruz [address] [place] [address] Ophthalmology 05/18/24 documented as of this encounter
== END 2024-07-06 13:35 | disposition home or self-care (01) ==
LOC: HO.ENCR 13:02
PROVIDERS: Visit Provider Nurse Practitioner Adult Health
DX: E11.9 Type 2 diabetes mellitus without complications (principal)
CPT/HCPCS: 99213; G2211

== ENCOUNTER → 2024-07-06 13:02 | Outpatient (BNVA) | payer MEDICARE, SELFPAY | PROVIDERS: Visit Provider Nurse Practitioner Adult Health | DX: E11.9 Type 2 diabetes mellitus without complications (principal) | CPT/HCPCS: 82947; 83036; 99212 ==

== ENCOUNTER 2025-01-11 12:44 | Outpatient (AMB) | payer MEDICARE, SELFPAY ==
[2025-01-11 12:55] VITALS: BP 122/64; PULSE 76; O2SAT 97; BMI 35.2
--- NOTE | 2025-01-11 12:55 | A.OFFVIS_ITS ---
Vital Signs 01/11/25 12:55 Height 5 ft 5 in Weight 211 lb 10.3 oz BMI 35.2 BP 122/64 Blood Pressure Location Rt brachial Position Sitting Pulse 76 Pulse Source Pulse Oximeter Pulse Oximetry (%) 97 Oxygen Delivery Method Room Air Intake Visit Reasons: DM Intake Note: Patient presents today for a follow-up on Type 2 Diabetes Mellitus: Last Diabetic eye exam was on: 12/2023, [facility], patient stated having an appt next week. 01/2025 Last Podiatry exam was on: Does not see a Drying Room Supervisor Most recent HbA1c: 6.3%, 01/11/2025 Random Glucose- 97 mg/dL, Today Piece Goods Packer Required: No Accompanied by: Self / Same As Patient Allergies bacitracin (From Triple Antibiotic) Allergy (Mild, Verified 01/11/25 13:04) Unknown hypochlorous acid (From Avenova) Allergy (Mild, Verified 01/11/25 13:04) Unknown neomycin (From Triple Antibiotic) Allergy (Mild, Verified 01/11/25 13:04) Unknown polymyxin B (From Triple Antibiotic) Allergy (Mild, Verified 01/11/25 13:04) Unknown sodium chloride (From Avenova) Allergy (Mild, Verified 01/11/25 13:04) Unknown HPI Comments Details: 84 year old female presenting for diabetes follow up Medical history: htn, hld Initially diagnosed with T2DM prior to 2019. Current regimen: Lantus 12 units Metformin 1000 mg twice daily Ozempic 2mg weekly A1C 6.3% from A1c 07/06/24 7.4%, 12/23/2023 is 7.2%. CGM: use 26%, GMI, TGT 100% Hypoglycemia: Treats lows with orange juice. None recently Family history of T2DM in son and uncle Has eyes checked yearly, eye appt next week Very occasional tingling in left foot (attributes to previous back surgery, no other neuropathy: no numbness or cramping last foot exam June 2024, has pedicures every few months Had duplex done has bakers cyst back of left knee Denies nephropathy, not on [LAUREL/ARB]. Has HLD, on statin Denies CAD: no chest pain, dyspnea or symptoms of claudication had cardiac echo done a few weeks ago Has sleep apnea on CPAP: lately hasn't used due to neck pain, reports not sleeping well and plans to restart c/o neck pain may possibly due a cervical fusion Diet: Balanced Has not been to diabetes education or nutrition Not interested ROS CONSTITUTIONAL: Denies weight loss, fever and chills. HEENT: Denies changes in vision and hearing. RESPIRATORY: Denies SOB and cough. CV: Denies palpitations and CP GI: Denies abdominal pain, nausea, vomiting and diarrhea. : Denies dysuria and urinary frequency. MSK: Denies new myalgia and joint pain. SKIN: Denies rash and pruritus. NEUROLOGICAL: Denies headache PSYCHIATRIC: Denies recent changes in mood. PHYSICAL EXAM: GENERAL: Alert and oriented x 3. NAD EYES: EOMI. Anicteric. HENT: Moist mucous membranes. No scleral icterus. No cervical lymphadenopathy. LUNGS: Clear to auscultation bilaterally. CARDIOVASCULAR: Regular rate and rhythm. No murmur. No JVD. ABDOMEN: Soft, non-tender +bs EXTREMITIES: No edema. Non-tender. SKIN: No rashes or lesions. Warm. NEUROLOGIC: No focal neurological deficits. CN II-XII grossly intact PSYCHIATRIC: Cooperative. 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 Mother No problems noted. Social History Patient Tobacco Use Status: Never used Tobacco Physical Exam Vital Signs: Last Vital Signs Pulse 76 01/11/25 12:55 BP 122/64 01/11/25 12:55 Pulse Ox 97 01/11/25 12:55 Oxygen Delivery Method Room Air 01/11/25 12:55 BMI result Body Mass Index 35.2 Results AMB Hemoglobin A1c AMB Hemoglobin A1c 6.3 % Last Edit by AURELIO Herring on 01/11/25 13:09 Assessment & Plan Assessment & Plan (1) Type 2 diabetes mellitus: Code(s): E11.9 - Type 2 diabetes mellitus without complications Category: Medical Qualifiers: Diabetes mellitus terminal worker insulin use: with terminal worker use Diabetes mellitus complication status: without complication Qualified Code(s): E11.9 - Type 2 diabetes mellitus without complications; Z79.4 - senior living (current) use of insulin Plan: Type 2 diabetes, well controlled No hypoglycemia Continue current medication regimen Upcoming eye exam Treat hypoglycemia by rules of 15s Follow up in six months or sooner as needed Orders: Orders AMB Hemoglobin A1c Today E11.9 - Type 2 diabetes mellitus without complications Coding Level of Care Code Est Pt Level 4 (20383) Diagnoses Type 2 diabetes mellitus without complication, with long-term current use of insulin E11.9; Z79.4 Diabetes mellitus terminal worker insulin use: with terminal worker use Diabetes mellitus complication status: without complication
[2025-01-11 13:06] LABS: Glucose, Whole Blood 97 mg/dL (60-115)
--- OUTSIDE RECORDS SUMMARY | 2025-01-11 15:24 | XMS_ITS | Encounter Summary ---
Author Organization [facility] Address [address] [place], [place] [phone] Care Team Providers Care Mobile Electronics Installer Name Role Phone Nadra Horan APRN Primary Care Provider Narda Horan APRN Unavailable [phone] Wayne Santacruz Unavailable Javier Vitale Unavailable Encounter Details Date Type Department Care [...] Care Team (Late st Contact Info) Description 02/15/2025 11:00 AM EST Office Visit [facility] [address] [place] [phone] Narda Horan APRN BC [address] [place] [address] 4 mo fu documented as of this encounter Visit Diagnoses Not on filedocumented in this encounter Care Teams Mobile Electronics Installer Relationship Specialty Start Date End Date Narda Horan APRN BC [address] [place] [address] PCP - General 10/13/22 Narda Horan, FRESCO ARTIST [address] [place] [address] PCP - Backup PCP Family Medicine 04/09/23 Wayne Santacruz [address] [place] [address] Ophthalmology 05/18/24 Javier Vitale [address] [place] [address] Hematology/Oncology 08/16/24 documented as of this encounter
--- OUTSIDE RECORDS SUMMARY | 2025-01-11 15:24 | XMS_ITS | Encounter Summary ---
Author Organization [facility] Address [address] [place], [place] [phone] Care Team Providers Care Heat Treat Furnace Operator Name Role Phone Narda Horan APRN Primary Care Provider Narda Horan APRN Unavailable [phone] Wayne Santacruz Unavailable Javier Vitale Unavailable Encounter [...] Description 02/15/2025 11:00 AM EST Office Visit [facility] [address] [place] [phone] Narda Horan APRN BC [address] [place] [address] 4 mo fu documented as of this encounter Visit Diagnoses Not on filedocumented in this encounter Care Teams Heat Treat Furnace Operator Relationship Specialty Start Date End Date Narda Horan APRN BC [address] [place] [address] PCP - General 10/13/22 Narda Horan, CARBON PASTE MIXER OPERATOR [address] [place] [address] PCP - Backup PCP Family Medicine 04/09/23 Wanye Santacruz [address] [place] [address] Ophthalmology 05/18/24 Javier Vitale [address] [place] [address] Hematology/Oncology 08/16/24 documented as of this encounter
--- OUTSIDE RECORDS SUMMARY | 2025-01-11 15:24 | XMS_ITS | Clinical Summary ---
Author Organization [facility] Address [address] [place] [address] Care Team Providers Care Neon Electrician Name Role Phone Narda Horan APRN Primary Care Provider [phone] Abdiel Jolley MD Unavailable [phone] Allergies Active Allergy Reactions Criticality Noted Date Comments Aloe Rash Low 02/25/2016 Lactose GI intolerance Medium 07/27/2017 Rosiglitazone Low 07/18/2016 Avandia: GI Intolerance/Nausea/Vom iting Uasxriax-Dvuhjyujvfh-Quoj myxnb Rash Low 09/26/2021 Makes infection worse, skin irritation Medications atorvastatin (LIPITOR) 40 mg tablet Take 40 mg by mouth in the morning. 7 Active metFORMIN (GLUCOPHAGE) 1,000 mg tablet Take 1,000 mg by mouth in the morning and 1,000 mg before bedtime. Active metoprolol succinate XL (TOPROL-XL) 50 mg 24 hr tablet Take 50 mg by mouth in the morning. 0 8 Active furosemide (LASIX) 20 mg tablet Take 20 mg by mouth every other day. 1 Active amoxicillin (AMOXIL) 500 mg capsule as needed. 0 Active secukinumab (COSENTYX, 2 SYRINGES, SUBQ) Inject under the skin every 30 (thirty) days. Active vitamin B-12 1,000 mcg tablet Take 1,000 mcg by mouth. 1 Active Ozempic 1 mg/dose (4 mg/3 mL) pen injector Thursday 2 Active escitalopram (LEXAPRO) 20 mg tablet Take 20 mg by mouth. 2 Active hydroCHLOROthia zide (HYDRODIURIL) tablet Take 25 mg by mouth. 3 Active gabapentin (NEURONTIN) 300 mg capsule Take 1 capsule by mouth. 5 Active MELOXICAM ORAL Take by mouth as needed. Active insulin glargine (SEMGLEE) 100 unit/mL injection Inject 12 Units under the skin nightly. 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 Encounters Date Type Department Care Team Description 10/11/2024 11:00 AM EDT Ancillary Procedure [facility] [address] [place] [address] Javier Vitale MD Pain in left finger(s) 10/11/2024 10:45 AM EDT Follow-Up [facility] [address] [place] [address] Javier Vitale MD Pain in left finger(s) (Primary Dx); Trigger finger, left middle finger from Last 3 Months Immunizations Immunization Administration Dates Next Due COVID-19 mRNA (PFIZER) 01/07/2021,05/09/2020,02/2021 Family History Medical History Relation Comments Bone cancer Father Pancreatic cancer Father Relation Status Comments Father Mother Social History Tobacco Use Types Packs/Day Years Used Date Smoking Tobacco: Former Cigarettes Q uit: 07/28/1971 Smokeless Tobacco: Never Tobacco Cessation:Counseling Given: Not Answered Alcohol Use Standard Drinks/Week Comments Yes 2 (1 standard drink = 0.6 oz pur e alcohol) ocassionally Comments No Sex and Gender Information Value Date Recorded Sex Assigned at Female 08/15/2024 2:02 PM EDT Legal Sex Female 5:58 AM EST Gender Identity Female 08/15/2024 2:02 PM EDT Sexual Orientation Straight 08/15/2024 2: 02 PM EDT Last Filed Vital Signs Vital Sign Reading Time Taken Comments Blood Pressure 147/78 08/29/2024 11:25 AM EDT Pulse 73 08/29/2024 11:25 AM EDT Temperature 36.6 C (97.8 F) 08/29/2024 10:42 AM EDT Respiratory Rate 18 08/29/2024 11:2 5 AM EDT Oxygen Saturation 99% 08/29/2024 11: 40 AM EDT Inhaled Oxygen Concentration - - Weight 96.6 kg (212 lb 15.4 oz) 08/29/2024 8:51 AM EDT Height 165.1 cm (5' 5 ) 08/24/2024 12:0 1 PM EDT Body Mass Index 35.44 08/24/2024 12:01 PM EDT Plan of Treatment Health Maintenance Due Date Last Done Comments Bone Density Screening 1942 Diabetes: Kidney Health Evaluation 1940 HIV Screening 1940 Medicare Annual Wellness (AWV) 1942 Diabetes: Retinopathy Screening 1960 COVID-19 Vaccine ( season) 2024 02/18/2022, 01/07/2021, 05/09/2020, Additional history exists Influenza Vaccine (#1) 2024 , 02/18/2022, 04/20/2021, Additional history exists Diabetes: Hemoglobin A1C 01/29/2025 07/29/2024, 02/06 DTaP,Tdap,and Td Vaccines (2 - Td or Tdap) 09/22/2026 09/22/2016, 06/04/2009, 03/18/1993 Zoster Vaccines Completed 02/06/2021, 10/07, 08/07/2020, Additional history exists Pneumococcal Vaccine, 50+ Years Completed 10/29/2021, 09/22/2016, 04/20/2013, Additional history exists Diabetes: Urine Microalbumin Discontinued 07/29/2024, 02/24/2024 HPV Vaccines Aged Out No longer eligi ble based on patient's age to complete this topic Hepatitis A Vaccines Aged Out No long er eligible based on patient's age to complete this topic Meningococcal Vaccine Aged Out No jak leeroy eligible based on patient's age to complete this topic Medical Devices Implanted Type Area Dispatcher Service Chief Device Identifier Shelf Expiration Date Model / Serial / Lot 36mm Aequalis Perform Standard [employer] - [id number] - [id number] Implanted:Qty: 1 on 10/02/2017 by Rory Quintero MD at [facility] Shoulder Implant System Left: Shoulder Tornier 08/05/2022 [id number] / [id number] / [id number] 5.0mm X 18mm Perform Peripheral Screw Implanted:Qty: 1 on 10/02/2017 by Rory Quintero MD at [facility] Shoulder Implant System Left: Shoulder [id number] / / 36mm +6mm Thickness A-12.5 Angle Aequalis Ascend Flex Reversed Insert (Formerly Tornier) - [id number] - [id number] Implanted:Qty: 1 on 10/02/2017 by Rory Quintero MD at [facility] Shoulder Implant System Left: Shoulder [employer] 07/08/2022 [id number] / [id number] / [id number] 78mm 4b Mariya Aequalis Ascend Flex Standard Ptc Humeral Stem 132.5-Deg (Formerly Tornier) - [id number] - [id number] Implanted:Qty: 1 on 10/02/2017 by Rory Quintero MD at [facility] Shoulder Implant System Left: Shoulder [employer] 08/13/2022 [id number] / [id number] / [id number] 0mm Offset +0mm Thickness Aequalis Ascend Flex Reversed Tray Centered (Formerly Tornier) - [id number] - [id number] Implanted:Qty: 1 on 10/02/2017 by Rory Quintero MD at [facility] Shoulder Implant System Left: Shoulder [employer] 12/04/2021 [id number] / [id number] / [id number] Standard Baseplate Implanted:Qty: 1 on 10/02/2017 by Rory Quintero MD at [facility] Left: Shoulder Tornier 07/30/2022 [id number] / [id number] / Aequalis Perform Reversed Screw Implanted:Qty: 1 on 10/02/2017 by Rory Quintero MD at [facility] Left: Shoulder Tornier [id number] / / Aequalis Perform Reversed Screw Implanted:Qty: 1 on 10/02/2017 by Rory Quintero MD at [facility] Left: Shoulder Tornier [id number] / / Explanted Type Area Dispatcher Service Chief Device Identifier Shelf Expiration Date Model / Serial / Lot Long Key Explanted:Qty: 1 on 10/02/2017 by Rory Quintero MD at [facility] Left: Shoulder [employer] [id number] / / Procedures Procedure Name Priority Date/Time Associated Diagnosis Comments XR FINGER COMPLETE LEFT Routine 10/11/2024 11:14 AM EDT Pain in left finger(s) from Last 3 Months Results * XR finger complete left (10/11/2024 11:14 AM EDT) Anatomical Region Laterality Modality Upper Extremities, Fingers Left Compu hunter Radiography Narrative 10/11/2024 11:21 AM EDT Imaging Result: 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 Javier Vitale MD IMG XR PROCEDURES Final Result from Last 3 Months Insurance [employer] MANAGED MEDICARE PPO Advance Directives For more information, please contact: [phone] Documents on File Type Date Recorded Patient International Banker Expl anation Advance Directives 08/31/2024 2:43 PM Advance Directives 03/24/2023 1:03 PM Advance Directives 10/03/2021 12:33 PM Advance Directives 10/04/2017 10:31 AM * Full Code (Latest Code Status on File) Date Activated Date Inactivated Comments 10/02/2017 12:23 PM 10/03/2017 6:05 PM Question Answer Comments Code Status: Not discussed with patient and/o r caregiver Care Teams Neon Electrician Relationship Specialty Start Date End Date Narda Horan APRN [address] [place] [address] [place] [address] PCP - General Primary Care/Sports Med 11/12/18 Abdiel Jolley MD [address] [place] [address] Cardiology 09/26/21
--- OUTSIDE RECORDS SUMMARY | 2025-01-11 15:25 | XMS_ITS | Clinical Summary ---
Author Organization [facility] Address [address] [place] [address] Care Team Providers Care Highballer Name Role Phone Cristi Huggins MD Primary Care Provider [phone] Social History Tobacco Use Types Packs/Day Years [...] - 1-dose 75+ series) 2017 COVID-19 Vaccine (2024-2 6 season) 2024 01/07/2021, 05/09/2020, 04/20/2020 Influenza Vaccine (#1) 2024 Hepatitis B Vaccines Aged Out No long er eligible based on patient's age to complete this topic RSV Ped < 20 months Aged Out No longe r eligible based on patient's age to complete this topic Care Teams Highballer Relationship Specialty Start Date End Date Cristi Huggins MD [address] [place] [id number] PCP - General Family Medicine 01/19/14
--- OUTSIDE RECORDS SUMMARY | 2025-01-11 15:25 | XMS_ITS | Clinical Summary ---
Author Organization [facility] Address [address] [place] [address] Care Team Providers Care Enrober Name Role Phone Narda Horan APRN Primary Care Provider Narda Horan APRN Unavailable [phone] Wayne Santacruz Unavailable Javier Vitale Unavailable Allergies Active Allergy Reactions Criticality Noted Date Comments Aloe Vera 12/09/2017 Reactions: Edema Xpjquzopnu-Evqqzycl-Fnudlnvi n 12/09/2017 TouchWorks Comment: [id number]: INfection Lactose 08/27/2018 Rosiglitazone 11/28/2017 Reactions: Nausea , TouchWorks Comment: [id number]: Nausea Medications METRONIDAZOLE, TOPICAL, (METROCREAM) 0.75 % cream APPLY AND GENTLY MASSAGE INTO AFFECTED AREA(S) ONCE DAILY. 1 each 3 2 Active Blood Glucose Monitoring Suppl (ONE TOUCH ULTRA 2) w/Device KitIndications:Hyp erlipidemia associated with type 2 diabetes mellitus (HCC) 1 each 1 (one) time each day Use as directed. 1 each 4 Active Lancets (OneTouch Delica Plus [id number]) Misc LancetIndications: Hyperlipidemia associated with type 2 diabetes mellitus (HCC) 1 each 1 (one) time each day Use as directed. 100 each 3 4 Active Vitamin D-3 125 MCG (5000 UT) Tab Take by mouth. Active Continuous Glucose Advertising Sales Agent (FreeStyle Enedelia 14 Day Glen) Device Use as directed. 1 each 1 4 Active Glucose Blood test stripIndications:H yperlipidemia associated with type 2 diabetes mellitus (HCC) one each by Other route - Use as directed. 100 strip 3 4 Active Insulin Pen Needle (BD Pen Needle Debbi 2nd Gen) 32G X 4 MM Pen Needle 1 each 1 (one) time each day. 100 each 3 4 026 Active metFORMIN HCl (GLUCOPHAGE) 1000 MG tablet Take one tablet (1,000 mg total) by mouth 2 (two) times a day. 180 tablet 3 4 026 Active Insulin Glargine (Lantus SoloStar) 100 UNIT/ML Pen-Injector Inject 10 (ten) Units under the skin 1 (one) time each day DIRECTED 9 mL 3 5 026 Active Metoprolol Succinate (TOPROL-XL) 50 MG 24 hr tablet Take one tablet (50 mg total) by mouth 1 (one) time each day. 90 tablet 3 5 Active Gabapentin (NEURONTIN) 300 MG capsule Take 1 capsule by mouth 3 (three) times a day. 5 Active Meloxicam (MOBIC) 15 MG tablet Take 15 mg by mouth 1 (one) time each day. Active Aspirin (ST CHARLY) 81 MG EC tablet Take one tablet (81 mg total) by mouth 1 (one) time each day. 90 tablet 3 5 026 Active Continuous Glucose Sensor (FreeStyle Enedelia 14 Day Sensor) Device Inject 1 Device into the skin every 14 (fourteen) days Use as directed. 6 each 3 5 026 Active Escitalopram (LEXAPRO) 20 MG tabletIndications: Recurrent major depressive disorder, in partial remission Take one tablet (20 mg total) by mouth 1 (one) time each day. 90 tablet 1 5 Active Atorvastatin Calcium (LIPITOR) 40 MG tabletIndications: Hyperlipidemia, unspecified hyperlipidemia type Take one tablet (40 mg total) by mouth 1 (one) time each day. 90 tablet 5 Active Vitamin B-12 (VITAMIN B-12) 1000 MCG tablet Take one tablet (1,000 mcg total) by mouth 1 (one) time each day. 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 Of gabapentin causing problem and suggest decrease in dose. 09/30/2024 Assessment & Plan (09/19/2024 12:09 PM EDT): Orders: MRI BRAIN W/O CONTRAST; Future Screening, ischemic heart disease 08/17/2024 Assessment & Plan (08/17/2024 3:23 PM EDT): Diabetes mellitus due to und erlying condition with hyperglycemia, with long-term current use of insulin 11/02/2023 Assessment & Plan (05/18/2024 4:20 PM EDT): Claudication of both lower extremities Assessment & Plan (05/18/2024 4:20 PM EDT): Murmur, cardiac 05/29/2021 Vitamin B12 deficiency 08/22/2020 Psoriasis 04/18/2020 Overview (05/18/2024): Stopped cosentyx with no recurrence. 05/18/2024 Assessment & Plan (05/18/2024 4:20 PM EDT): Neural foraminal stenosis of thoracic spine 06/2019 Transient diplopia 12/27/2019 Ventral hernia 01/13/2019 Recurrent major depressive disorder, in partial remission 12/19/2018 Overview (05/18/2024): Impression - [id number]: cont on escitalopram cont on esciatlopram some symptoms remain but better Assessment & Plan (09/19/2024 11:48 AM EDT): Cont same dose 09/19/2024 Assessment & Plan (08/17/2024 3:37 PM EDT): Current medication working ok 08/17/2024 CLEAR FOR SURGERY Assessment & Plan (05/18/2024 4:20 PM EDT): [...] in adult 08/28/2018 Overview (04/12/2023): Impression - [id number]: feeling well on ozempic; Description: Sleep Medicine [...] region 11/28/2017 Overview (04/12/2023): Description: Juan J [place] Fusion 3-06 repeat 6-11 Hypertension, benign 11/28/2017 Assessment & Plan (09/19/2024 12:09 PM EDT): Controlled on medication 09/19/2024 Assessment & Plan (05/18/2024 4:20 PM EDT): Post-menopause 11/28/2017 Overview (02/07/2024): Normal bone density 4-24 Hyperlipidemia associated with type 2 diabetes m sonny 11/28/2017 Overview (04/12/2023): Transitioned From: Dyslipidemia due to type 2 diabetes mellitus Impression - [id number]: will look at A 1 C to clear for surgery Cont statin and dm medication Assessment & Plan (09/19/2024 12:09 PM EDT): Improving on medication 09/19/2024 Assessment & Plan (05/18/2024 4:20 PM EDT): Preop examination 11/28/2017 Assessment & Plan (08/17/2024 3:23 PM EDT): Resolved Problems Problem Noted Date Diagnosed Date Resolved Date Trigger index finger of right hand 08/17/2024 09/19/2024 Trigger finger 08/17/2024 08/17/2024 Assessment & Plan (08/17/2024 3:37 PM EDT): 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 11/02/2023 09/19/2024 Trigger index finger of right hand 03/04/2023 05/18/2024 Encounter for immunization 10/29/2021 0 09/19/2024 Immunocompromised state due to drug therapy 04/18/2020 05/18/2024 Overview (04/12/2023): Description: on cosentyx for psoriasis Need for influenza vaccination 12/27/2019 09/19/2024 Edema of extremities 12/27/2019 025 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 05/20/2019 05/18/2024 Encounters Date Type Department Care Team Description 12/16/2024 Refill [facility] [address] [place] [address] Narda Horna, TUBE FITTER BC Refill Request 11/15/2024 Refill [facility] [address] [facility] [place] [address] Narda Horan, TUBE FITTER BC Refill Request 11/01/2024 Refill [facility] [address] [place] [place] [address] Narda Horan, TUBE FITTER BC Refill Request 11/01/2024 Refill [facility] [address] [facility] [place] [address] Narda Horan, TUBE FITTER BC Refill Request 10/18/2024 Refill [facility] [address] [facility] [place] [address] Narda Horan, TUBE FITTER BC Refill Request 10/11/2024 Consult (Initial) ORTHOPEDICS UNSPEC Javier Vitale from Last 3 Months Immunizations Immunization Administration Dates Next Due COVID-19, mRNA (Pfizer [...] tobacco use Alcohol Use Standard Drinks/Week Comments Yes 0 [...] Sign Reading Time Taken Comments Blood Pressure 118/68 09/19/2024 11:25 AM EDT Pulse 80 09/19/2024 11:25 AM EDT Temperature 36.3 C (97.4 F) 09/19/2024 11:25 AM EDT Respiratory Rate 17 09/19/2024 11:2 5 AM EDT Oxygen Saturation 97% 09/19/2024 11: 25 AM EDT Inhaled Oxygen Concentration - - Weight 97.8 kg (215 lb 9.6 oz) 09/19/2024 11:25 AM EDT patient had shoes on for height and weight today Height 165.1 cm (5' 5 ) 09/19/2024 11:2 5 AM EDT patient had shoes on for height and weight today Body Mass Index 35.88 09/19/2024 11:25 AM EDT Plan of Treatment Upcoming Encounters Date Type Department Care Team (Late st Contact Info) Description 02/15/2025 11:00 AM EST Office Visit [facility] [address] [place] [address] Narda Horan, TUBE FITTER [address] [phone] 4 mo fu Health Maintenance Due Date Last Done Comments RSV (1 - 1-dose 75+ series) 2017 COVID-19 Vaccine ( season) 2024 02/18/2022, 01/07/2021, 05/11/2020, Additional history exists Influenza (#1) 2024 01/13/2024, 02/06, 04/20/2021, Additional history exists HA1C 01/29/2025 07/29/2024, 02/06, 11/23/2023, Additional history exists GFR 07/29/2025 07/29/2024, 02/06, 11/23/2023, Additional history exists LDL Cholesterol 07/29/2025 07/29/2024, 11/07, 03/04/2023, Additional history exists Microalbumin 07/29/2025 07/29/2024, 02/06, 11/23/2023, Additional history exists Eye/Retina Exam 01/14/2026 01/15/2024 DTaP/Tdap/Td (2 - Td or Tdap) 09/22/2026 09/22/2016, 06/04/2009, 03/18/1993 Upper Endoscopy Discontinued 03/18/2019, 03/18/2019 Colonoscopy Discontinued 04/18/2020, 03/18/2019 Colon Cancer Screening Discontinued 04/20/2020 Zoster (Shingrix) Completed 02/06/2021, , 08/07/2020, Additional history exists Pneumococcal 50+ years Completed , 09/22/2016, 04/20/2013, Additional history exists Bone Density Completed 07/04/2023 Mammogram/Breast Imaging Discontinued 024, 06/26/2020, 06/26/2020, Additional history exists EKG Discontinued 08/17/2024, 08/07, 09/30/2021, Additional history exists HPV Vaccine (No Doses Required) Completed Hep A Aged Out No longer eligi [...] Author Blood Pressure < 140/90 Blood Pressure 118/68(09/19 11:25 AM EDT) Christine Todd RN Note: Above is your goal for blood pressure control. You may be able to prevent, reduce or eliminate the medication required for your blood pressure by regular measurement of your blood pressure at home, since home readings are often more reliable than measurements at the doctor s office. You can also improve your [...] HEMOGLOBIN A1C % < 7 Result Component 7(07/29/2024 10:58 AM EDT) Christine Todd RN Note: Above is your [...] Procedure Name Priority Date/Time Associated Diagnosis Comments EKG 08/17/2024 COMPREHENSIVE METABOLIC PANEL WITH GFR Routine 07/29/2024 10:58 AM EDT Diabetes mellitus due to underlying condition with hyperglycemia, with long-term current use of insulin (HCC) ALBUMIN (MICROALBUMIN), RANDOM URINE, WITH CREATININE Routine 07/29/2024 10:58 AM EDT Diabetes mellitus due to underlying condition with hyperglycemia, with long-term current use of insulin (HCC) HEMOGLOBIN A1C Routine 07/29/2024 10:58 AM EDT Diabetes mellitus due to underlying condition with hyperglycemia, with long-term current use of insulin (HCC) LIPID PANEL WITH REFLEX TO DIRECT LDL Routine 07/29/2024 10:58 AM EDT Diabetes mellitus due to underlying condition with hyperglycemia, with long-term current use of insulin (HCC) DUAL ENERGY DEXA BONE DENSITY ONE/MORE SITES AXIAL SKEL 07/04/2023 SCREENING MAMMOGRAPHY BILATERAL, 2 VIEWS EACH BREAST, INCLUDING CAD 07/04/2023 COLONOSCOPY Routine 04/18/2020 9:30 AM EST EGD (UPPER GI ENDOSCOPY) 03/18/2019 1:44 PM EST from Last 3 Months or Most Recently Relevant to Health Maintenance Results * EKG (08/17/2024) us Unknown Provider CARDIOVASCULAR-NO INBASKET RTG Final Result * (ABNORMAL) HEMOGLOBIN A1C (07/29/2024 10:58 AM EDT) Hemoglobin A1C 7.0(H) 4.3 - 6.1 %A1C [facility] Comment: 5.7-6.4 Increased Risk of Diabetes >6.4 Consistent with Diabetes The [place] [employer] recommends a goal of less than 7% for diabetic patients. 07/29/2024 10:5 8 AM EDT 07/29/2024 8:32 PM EDT Narrative [facility] - 07/29/2024 9:05 PM EDT Testing performed at [facility], [address] [place] [address], , Cement Finishing Supervisor: Dilcia Kapoor MD CL#[id number] Narda Horan [facility] Final R esult Performing Organization Address [facility] de Phone Number [facility] [address] [place] [address], * ALBUMIN (MICROALBUMIN), RANDOM URINE, WITH CREATININE (07/29/2024 10:58 AM EDT) Albumin (Urine) 23 0 - 23 mg/L [facility] Creatinine (Urine) 192 60 - 200 mg/dL [facility] Microalbumin/Cr eat Ratio (Urine) 12 0 - 30 [facility] 07/29/2024 10:5 8 AM EDT 07/29/2024 8:32 PM EDT Narrative [facility] - 07/29/2024 11:04 PM EDT Testing performed at [facility], [address] [place] [address], , Cement Finishing Supervisor: Dilcia Kapoor MD CL#[id number] Narda Horan [facility] Final R esult Performing Organization Address [facility] de Phone Number [facility] [address] [place] [address], * LIPID PANEL WITH REFLEX TO DIRECT LDL (07/29/2024 10:58 AM EDT) Cholesterol 121 0 - 199 mg/dL [facility] Triglyceride 99 0 - 150 mg/dL [facility] VLDL Cholesterol 20 5 - 40 mg/dL [facility] HDL Cholesterol 50 50 - 80 mg/dL [facility] LDL Cholesterol 51 0 - 100 mg/dL [facility] Cholesterol Non-HDL 71 0 - 130 mg/dl [facility] CHOL/HDL Ratio 2.4 [facility] 07/29/2024 10:5 8 AM EDT 07/29/2024 8:32 PM EDT Narrative [facility] - 07/29/2024 9:50 PM EDT Fasting reference interval. Optimum Lipid testing results require a 12-hour fasting specimen. If a non-fasting specimen was collected, consider repeat testing on a fasting specimen if clinically indicated.Non-Fasting Reference Ranges:Cholesterol < 190 mg/dLTriglycerides < 174 mg/dLHDL > 40 mg/dLLDL-C < 115 mg/dLNon-HDL-C < 149 mg/dL FASTING: UNKNOWN Testing performed at [facility], [address] [place] [address], , Cement Finishing Supervisor: Dilcia Kapoor MD CL#[id number] [facility] Final R esult [facility] [address] [place] [address]. [place] [address], * (ABNORMAL) COMPREHENSIVE METABOLIC PANEL WITH GFR (07/29/2024 10:58 AM EDT) Pathologist [facility] Glucose 110(H) 65 - 99 mg/dL [facility] Comment:Fasting Reference In terval Urea Nitrogen Blood (BUN) 12 8 - 23 mg/dL [facility] Creatinine 0.7 0.4 - 1.1 mg/dL [facility] GFR 87 >=60 [facility] BUN/Creatinine Ratio 17 6 - 25 [facility] Sodium 141 133 - 145 mmol/L [facility] Potassium 5.1 3.3 - 5.3 mmol/L [facility] Comment:Specimen exhibits he molysis. Results may be effected. Chloride 101 96 - 108 mmol/L [facility] Bicarbonate 28 22 - 32 mmol/L [facility] Anion gap 3 12 [facility] Calcium 10.0 8.6 - 10.5 mg/dL [facility] Protein Total (Serum) 7.4 6.2 - 8.2 g/dL [facility] Albumin 3.9 3.5 - 5.2 g/dl [facility] Alkaline phosphatase 116 35 - 130 U/L [facility] AST (SGOT) 12 4 - 32 U/L [facility] ALT (SGPT) 7 4 - 33 U/L [facility] Bilirubin Total 0.4 0.1 - 1.0 mg/dL [facility] Globulin 3.5 1.4 - 4.8 g/dl [facility] Albumin/Globulin 1 1 - 3 [facility] Osmolality 273 253 - 285 mOsm/kg [facility] 07/29/2024 10:5 8 AM EDT 07/29/2024 8:32 PM EDT Narrative [facility] - 07/29/2024 10:01 PM EDT FASTING: UNKNOWN Testing performed at [facility], [address] [facility], [place] [address], , Cement Finishing Supervisor: Dilcia Kapoor MD CL#[id number] Fasting reference range.Optimum Glucose evaluation is recommended on a Fasting sample. Please interpret non-fasting results with caution.Non-fasting glucose can be interpreted as follows:< 140 [id number]: At risk for developing diabetes> 200: Suggests Diabetes us Narda Horan APRN LABORATORY Final R esult [facility] [address] [facility] [place] [address], [place] [phone] * SCREENING MAMMOGRAPHY BILATERAL, 2 VIEWS EACH BREAST, INCLUDING CAD (07/04/2023) 07/04/2023 Narrative 07/04/2023 Ordered by an unspecified provider. us Unknown Provider GENERAL IMAGING- OTHER Final Re sult * DUAL ENERGY DEXA BONE DENSITY ONE/MORE SITES AXIAL SKEL (07/04/2023) 07/04/2023 Narrative 07/04/2023 Ordered by an unspecified provider. us Unknown Provider GENERAL IMAGING- OTHER Final Re sult * COLONOSCOPY (04/18/2020 9:30 AM EST) COLONOSCOPY, RESULT Normal PHCT CONVERSIONS 04/18/2020 9:30 AM EST us Narda Horan APRN PROCEDURES Final R esult PHCT CONVERSIONS * EGD (UPPER GI ENDOSCOPY) (03/18/2019 1:44 PM EST) Narrative 03/18/2019 1:44 PM EST Ordered by an unspecified provider. us Unknown Provider PROCEDURES Final Result from Last 3 Months or Most Recently Relevant to Health Maintenance Insurance [employer] MEDICARE (RISK) Care Teams Enrober Relationship Specialty Start Date End Date Narda Horan APRN [address] [place] [id number] PCP - General 10/13/22 Narda Horan APRN [address] [place] [phone] PCP - Backup PCP Family Medicine 04/09/23 Wayne Santacruz [address] [place] [phone] Ophthalmology 05/18/24 Javier Vitale [address] [place] [phone] Hematology/Oncology 08/16/24
--- OUTSIDE RECORDS SUMMARY | 2025-01-11 15:25 | XMS_ITS | Encounter Summary ---
Author Organization [facility] Address [address] [place], [place] [phone] Care Team Providers Care Sales Promotion Manager Name Role Phone Narda Horan [facility] Primary Care Provider Narda Horan [facility] Unavailable [phone] Wayne Santacruz Unavailable Javier Vitale Unavailable Encounter Details Date Type Department Care Team (Late st Contact Info) Description 07/04/2023 Orders Only [address] [phone] Narda Horan, [address] [address] Social History Tobacco Use Types Packs/Day Years [...] Description 02/15/2025 11:00 AM EST Office Visit [address] [phone] Narda Horan, DEBT MANAGEMENT COUNSELOR [address] [place] [address] 4 mo fu documented as of this encounter Visit Diagnoses Not on filedocumented in this encounter Care Teams Sales Promotion Manager Relationship Specialty Start Date End Date Narda Horan, [facility] [address] [place] [address] PCP - General 10/13/22 Narda Horan, [facility] [address] [place] [address] PCP - Backup PCP Family Medicine 04/09/23 Wayne Santacruz [address] [place] [phone] Ophthalmology 05/18/24 Javier Vitale [address] [place] [phone] Hematology/Oncology 08/16/24 documented as of this encounter
--- OUTSIDE RECORDS SUMMARY | 2025-01-11 15:25 | XMS_ITS | Encounter Summary ---
Author Organization [facility] Address [address] [place] [address] Care Team Providers Care Lens Edge Grinder Machine Name Role Phone Narda Horan [facility] Primary Care Provider Narda Horan CLOTHESPIN DRIER OPERATOR Unavailable [phone] Wayne Santacruz Unavailable Javier Vitale Unavailable Reason for Visit * Reason Onset Date Comments Refill Request 05/02/2024 Encounter Details Date Type Department Care Team (Late st Contact Info) Description 05/02/2024 Refill [facility] [address] [place] [address] Narda Horan, [address] [address] Refill Request Social History Tobacco Use Types [...] Description 02/15/2025 11:00 AM EST Office Visit [facility] [address] [place] [address] Narda Horan, CLOTHESPIN DRIER OPERATOR [address] [place] [address] 4 mo fu documented as of this encounter Goals Goal Patient Goal Type Associated Problems Recent Progress Patient-Stated? Author Blood Pressure < 140/90 Blood Pressure 118/68(09/19 11:25 AM EDT) Christine Todd, MARCEL Note: Above is [...] Result Component 7(07/29/2024 10:58 AM EDT) Christine Todd, MARCEL Note: Above is [...] on filedocumented in this encounter Care Teams Lens Edge Grinder Machine Relationship Specialty Start Date End Date Narda Horan APRN [address] [place] [address] PCP - General 10/13/22 Narda Horan APRN [address] [place] [address] PCP - Backup PCP Family Medicine 04/09/23 Wayne Santacruz [address] [place] [phone] Ophthalmology 05/18/24 Javier Vitale [address] [place] [address] Hematology/Oncology 08/16/24 documented as of this encounter
--- OUTSIDE RECORDS SUMMARY | 2025-01-11 15:25 | XMS_ITS ---
Author Name [facility] Organization Unknown Results Test Name/Text Value Interpretation Date Range Source POCT GLUCOSE 92.0 mg/dL 08/29/2024 70 - 200 [facility]. ALB/CREAT RATIO 12.0 07/30/2024 0 - 30 [facility] URINE MICROALBUMIN 23.0 mg/L 07/30/2024 0 - 23 [facility] URINE CREATININE 192.0 mg/dL 07/30/2024 60 - 200 [facility] GLOBULIN 3.5 g/dl 07/30/2024 1.4 - 4.8 [facility] egfr 87.0 07/30/2024 - [facility] ANION GAP 12.0 07/30/2024 [facility] CALCULATED OSMO 273.0 mOsm/kg 07/30/2024 253 - 285 [facility] BUN/CREAT RATIO 17.0 07/30/2024 6 - 25 [facility] A/G RATIO 1.0 07/30/2024 1 - 3 [facility] BUN 12.0 mg/dL 07/30/2024 8 - 23 [facility] CALCIUM 10.0 mg/dL 07/30/2024 8.6 - 10.5 [facility] ALKALINE PHOSPHATASE 116.0 U/L 07/30/2024 35 - 130 [facility] ALT 7.0 U/L 07/30/2024 4 - 33 [facility] ALBUMIN 3.9 g/dl 07/30/2024 3.5 - 5.2 [facility] CHLORIDE 101.0 mmol/L 07/30/2024 96 - 108 [facility] CO2 28.0 mmol/L 07/30/2024 22 - 32 [facility] TOTAL BILIRUBIN 0.4 mg/dL 07/30/2024 0.1 - 1 [facility] CREATININE 0.7 mg/dL 07/30/2024 0.4 - 1.1 [facility] TOTAL PROTEIN 7.4 g/dL 07/30/2024 6.2 - 8.2 [facility] POTASSIUM 5.1 mmol/L 07/30/2024 3.3 - 5.3 [facility] GLUCOSE 110.0 mg/dL Above high normal 07/30/2024 65 - 99 [facility] SODIUM 141.0 mmol/L 07/30/2024 133 - 145 [facility] AST 12.0 U/L 07/30/2024 4 - 32 [facility] VLDL 20.0 mg/dL 07/30/2024 5 - 40 [facility] Non-HDL CHOLESTEROL 71.0 mg/dl 07/30/2024 0 - 130 [facility] LDL 51.0 mg/dL 07/30/2024 0 - 100 [facility] CHOL/HDL RATIO 2.4 07/30/2024 [facility] CHOLESTEROL 121.0 mg/dL 07/30/2024 0 - 199 [facility] TRIGLYCERIDES 99.0 mg/dL 07/30/2024 0 - 150 [facility] HDL 50.0 mg/dL 07/30/2024 50 - 80 [facility] Hemoglobin A1C 7.0 %A1C Above high normal 07/30/2024 4.3 - 6.1 [facility] TSH 2.1 uIU/ml Normal 02/25/2024 0.5 - 4.8 [facility] egfr 74.0 Normal 02/25/2024 - [facility] BUN/CREAT RATIO 26.0 Above high normal 02/25/2024 6 - 2 5 [facility] CO2 28.0 mmol/L Normal 02/25/2024 22 - 32 [facility] CREATININE 0.8 mg/dL Normal 02/25/2024 0.4 - 1.1 [facility] POTASSIUM 4.1 mmol/L Normal 02/25/2024 3.3 - 5.3 [facility] GLUCOSE 174.0 mg/dL Above high normal 02/25/2024 65 - 99 [facility] SODIUM 140.0 mmol/L Normal 02/25/2024 133 - 145 [facility] CALCIUM 9.4 mg/dL Normal 02/25/2024 8.6 - 10.5 [facility] BUN 21.0 mg/dL Normal 02/25/2024 8 - 23 [facility] CHLORIDE 100.0 mmol/L Normal 02/25/2024 96 - 108 [facility] UM. ALB/CREAT RATIO 6.0 Normal 02/25/2024 0 - 30 [facility] URINE CREATININE 168.0 mg/dL Normal 02/25/2024 60 - 200 [facility] MICRO[facility]IN <12 Normal 02/25/2024 0 - 23 [facility] Hemoglobin A1C 7.7 %A1C Above high normal 02/25/2024 4.3 - 6.1 [facility] RBC 4.5 M/uL Normal 02/25/2024 3.8 - 5.2 [facility] MCHC 32.0 g/dl Normal 02/25/2024 31 - 35 [facility] PLT 275.0 K/uL Normal 02/25/2024 150 - 450 [facility] MCH 29.0 pg Normal 02/25/2024 27 - 32 [facility] HEMOGLOBIN 12.9 g/dL Normal 02/25/2024 11.5 - 15.5 [facility] WBC 8.5 K/uL Normal 02/25/2024 3.6 - 11 [facility] HEMATOCRIT 40.6 % Normal 02/25/2024 35 - 47 [facility] RDW-CV 13.2 % Normal 02/25/2024 12 - 16.1 [facility] MCV 91.0 fL Normal 02/25/2024 80 - 100 [facility] DOUGLAS <12.0 Normal 11/23/2023 0 - 23 [facility] UCR 144.0 mg/dL Normal 11/23/2023 60 - 200 [facility] NA 142.0 mmol/L Normal 11/23/2023 133 - 145 [facility] GLUC 130.0 mg/dL Above high normal 11/23/2023 65 - 99 [facility] CL 103.0 mmol/L Normal 11/23/2023 96 - 108 [facility] BUN 18.0 mg/dL Normal 11/23/2023 8 - 23 [facility] CALC 9.6 mg/dL Normal 11/23/2023 8.6 - 10.5 [facility] CO2 29.0 mmol/L Normal 11/23/2023 22 - 32 [facility] B/C 26.0 Above high normal 11/23/2023 6 - 25 [facility] eGFR 87.0 Normal 11/23/2023 - [facility] K 4.0 mmol/L Normal 11/23/2023 3.3 - 5.3 [facility] CREAT 0.7 mg/dL Normal 11/23/2023 0.4 - 1.1 [facility] HDL 47.0 mg/dL Below low normal 11/23/2023 50 - 80 [facility] Non-HDL 67.0 mg/dl Normal 11/23/2023 0 - 130 [facility] TRIG 78.0 mg/dL Normal 11/23/2023 0 - 150 [facility] LDL 51.0 mg/dL Normal 11/23/2023 0 - 100 [facility] VLDL 16.0 mg/dL Normal 11/23/2023 5 - 40 [facility] CHOL 114.0 mg/dL Normal 11/23/2023 0 - 199 [facility] CHOL/HDL RATIO 2.4 Normal 11/23/2023 [facility] A1C 7.9 %A1C Above high normal 11/23/2023 4.3 - 6.1 [facility] HGB 12.4 g/dL Normal 11/23/2023 11.5 - 15.5 [facility] HCT 39.8 % Normal 11/23/2023 35 - 47 [facility] POCT GLUCOSE 183.0 mg/dL Normal 03/20/2023 70 - 200 [facility] History of Medication Use Medication Directions Dispensed Refills Start Date End Date Status gabapentin (NEURONTIN) 300 mg capsule Take 1 capsule by mouth. 025 active gabapentin 300 mg capsule gabapentin 300 mg capsule; 1 (one) capsule three times daily for 0 days Quantity: 90 {Capsule}Refills: 3Ordered: [id number] CHOWDHURY: 17-Aug-2024 025 active betamethasone acet,sod phos (CELESTONE) 6 mg/mL injection 6 mg 6 mg, intra-articular, One-time injection, 1 dose, Starting on Thu07/20/23 at 0915, Until Thu07/20/23 at 0915 023 2023 completed BUPivacaine HCl (MARCAINE) 0.5 % (5 mg/mL) injection 1 mL 023 2023 completed betamethasone acet,sod phos (CELESTONE) 6 mg/mL injection 12 mg 023 2022 completed bupivacaine HCl (MARCAINE) 0.5 % (5 mg/mL) injection 2 mL 2 mL, injection, One-time injection, 1 dose, Starting on Thu11/17/22 at 1030, Until Thu11/17/22 at 1030 023 2022 completed lidocaine (XYLOCAINE) 10 mg/mL (1 %) injection 1 mL 1 mL, One-time injection, 1 dose, Starting on Thu11/17/22 at 1030, Until Thu11/17/22 at 1030 023 2022 completed hydroCHLOROthiazide (HYDRODIURIL) tablet Take 25 mg by mouth. active escitalopram (LEXAPRO) 20 mg tablet Take 20 mg by mouth. active Escitalopram Oxalate 20 MG Oral Tablet Escitalopram Oxalate 20 MG Oral Tablettake 1 tablet by mouth once daily Quantity: 90 Refills: 1SNarda love APRN Start : 23-Qgf-9434Fuedvs completed methylPREDNISolone (Medrol, Kael,) 4 mg tablet TAKE 6 TABLETS ON DAY 1 DIRECTED ON PACKAGE AND DECREASE BY 1 TAB EACH DAY FOR A TOTAL OF 6 DAYS active metroNIDAZOLE 0.75 % External Cream metroNIDAZOLE 0.75 % External CreamAPPLY AND GENTLY MASSAGE INTO AFFECTED AREA(S) ONCE DAILY. Quantity: 1 Refills: 3SNarda love APRN Start : 69-Ici-8057Gryxyn56 GM Tube completed Amoxicillin 500 MG Oral Tablet Amoxicillin 500 MG Oral Tablet Refills: 0 Start : 99-Hhq-1496Qwcoxs completed Ozempic 1 mg/dose (4 mg/3 mL) pen injector INJECT 1MG SUBCUTANEOUSLY PER WEEK active vitamin B-12 1,000 mcg tablet Take 1,000 mcg by mouth. active Vitamin B-12 1000 MCG Oral Tablet Vitamin B-12 1000 MCG Oral TabletTAKE 1 TABLET BY MOUTH EVERY DAY DIRECTED Quantity: 100 Refills: 2SNarda love APRN Start : 70-Yoa-6120Gyhxpw completed furosemide (LASIX) 20 mg tablet Take 20 mg by mouth every other day. active furosemide (LASIX) 20 mg tablet TAKE 1 TABLET BY MOUTH UP TO 3 TIMES A WEEK NEEDED active Ozempic (1 MG/DOSE) 4 MG/3ML Subcutaneous Solution Pen-injector Ozempic (1 MG/DOSE) 4 MG/3ML Subcutaneous Solution Pen-injectorINJECT 1MG SUBCUTANEOUSLY PER WEEK Quantity: 9 Refills: 0SuNarda minor APRN Start : 9-Oye-8905Frxmbn completed Furosemide 20 MG Oral Tablet Furosemide 20 MG Oral TabletTAKE 1 TABLET BY MOUTH UP TO 3 TIMES A WEEK NEEDED Quantity: 20 Refills: 3SNarda love APRN Start : 74-Xqw-5368Kzwhna completed Ibuprofen 800 MG Oral Tablet Ibuprofen 800 MG Oral Tablet; 1 (one) Tablet three times daily, as needed for 7 days Quantity: 21 {Tablet}Refills: 0Ordered: 29-Cmd-4350KUIRAKOBO, KARAStart: 29-Sep-2019 End: 85-Dli-0829Uyvskm: InactiveComments: Medication taken as needed. 2019 suspended amoxicillin (AMOXIL) 500 mg capsule as needed. active amoxicillin (AMOXIL) 500 MG capsule active meloxicam 15 mg tablet meloxicam 15 mg tablet; 1 (one) Tablet daily for 30 days Quantity: 30 {Tablet}Refills: 0Ordered: 34-Ayw-5087HZCXZEABQ, KARAStart: 01-Apr-20242019 active BD Pen Needle Debbi 2nd Gen 32G X 4 MM BD Pen Needle Debbi 2nd Gen 32G X 4 MMinject weekly Quantity: 1 Refills: 0Narda Horan APRN Start : 1-Jhm-0047Gaonnz162 Unit Box 020 completed COSENTYX SENSOREADY, 300 MG, 150 MG/ML Solution Auto-injector 019 active Nystop 253179 UNIT/GM External Powder Nystop 361935 UNIT/GM External PowderAPPLY ONE APPLICATION TO AFFECTED AREA DAILY Quantity: 15 Refills: 2SNarda love APRN Start : 4-Tok-9299Wtbkvo 019 completed Medrol 4 MG Oral Tablet Therapy Pack Medrol 4 MG Oral Tablet Therapy Pack; 1 (one) Packet use as directed per instructions in pack for 5 days Quantity: 21 {Packet}Refills: 0Ordered: [id number], KARKaushikart: 03-Jan-2019 End: 2-Dcl-7216Xhlywa: Inactive 019 2018 suspended buPROPion (WELLBUTRIN) 75 MG tablet 019 active Sertraline HCl - 100 MG Oral Tablet Sertraline HCl - 100 MG Oral TabletTAKE 1/2 TABLET DAILY. Quantity: 90 Refills: Narda Malone APRN Start : 03-Ypr-4258Ltqbfh 018 completed Metoprolol Succinate ER 50 MG Oral Tablet Extended Release 24 Hour Metoprolol Succinate ER 50 MG Oral Tablet Extended Release 24 HourTAKE 1 TABLET BY MOUTH EVERY DAY Quantity: 90 Refills: Narda Hurley APRN Start : 07-Axs-6729Eajlwr 018 completed Atorvastatin Calcium 40 MG Oral Tablet Atorvastatin Calcium 40 MG Oral TabletTAKE 1 TABLET BY MOUTH DAILY Quantity: 90 Refills: Narda Malone APRN Start : 85-Efs-0352Pylmvg 018 completed sertraline (ZOLOFT) 100 mg tablet Take 100 mg by mouth daily. 018 active metFORMIN HCl - 1000 MG Oral Tablet metFORMIN HCl - 1000 MG Oral TabletTAKE 1 TABLET BY MOUTH TWICE DAILY Quantity: 180 Refills: Narda Malone APRN Start : 03-Mli-3438Ukeomd 018 completed Aspirin Low Dose 81 MG Oral Tablet Chewable Aspirin Low Dose 81 MG Oral Tablet ChewableAspirin Low Dose (81MG 1 Oral daily) Active -Hx Entry Quantity: 0 Refills: Shaye Vo Start : 79-Eek-6263Ssrwmx completed hydroCHLOROthiazide (HYDRODIURIL) 12.5 mg tablet daily. active hydroCHLOROthiazide (HYDRODIURIL) 12.5 mg tablet Take 12.5 mg by mouth every other day. active metoprolol succinate XL (TOPROL-XL) 50 mg 24 hr tablet daily. active metoprolol succinate XL (TOPROL-XL) 50 mg 24 hr tablet Take 50 mg by mouth in the morning. active hydroCHLOROthiazide 25 MG Oral Tablet hydroCHLOROthiazide 25 MG Oral TabletTAKE 1 TABLET BY MOUTH DAILY Quantity: 90 Refills: 1SNarda love APRN Start : 27-Azb-6678Mrutvf completed hydrochlorothiazide (MICROZIDE) 12.5 MG capsule Take 12.5 mg by mouth daily. active sertraline (ZOLOFT) 100 MG tablet Take 100 mg by mouth daily. active atorvastatin (LIPITOR) 40 mg tablet daily. active atorvastatin (LIPITOR) 40 mg tablet Take 40 mg by mouth in the morning. active atorvastatin (LIPITOR) 40 MG tablet active oxyCODONE (ROXICODONE) 5 MG immediate release tablet Take by mouth. for pain active metoPROLOL SUCCINATE (TOPROL-XL) 50 MG 24 hr tablet Take 50 mg by mouth daily. active glipiZIDE (GLUCOTROL XL) 10 mg 24 hr tablet active Aspir-81 (tablet,delayed release (DR/EC)) 81 mg complete d aspirin 81 mg chewable tablet Take by mouth daily. acti ve aspirin 81 mg chewable tablet Take 81 mg by mouth in the morning. active Aspirin 81 MG Oral Tablet Delayed Release Aspirin 81 MG Oral Tablet Delayed Release; (81 MG)Status: Inactive suspende d aspirin enteric coated (ECOTRIN LOW STRENGTH) 81 MG EC tablet Take 81 mg by mouth daily. active atorvastatin (tablet) 40 mg co mpleted Atorvastatin [...] Solution Prefilled Syringeonce every 4 weeks Refills: 8Jhvwne5 x 1 ML Syringe completed Cosentyx Sensoready [...] MG Oral Tablet; (12.5 MG)Status: Inactive suspended hydrOXYzine HCl (ATARAX) 10 MG tablet hydroxyzine HCl 10 mg tablet active insulin aspart (B3) pump cart insulin aspart (B3) pump cart active insulin glargine (SEMGLEE) 100 unit/mL injection Inject 12 Units under the skin nightly. Lantus active Iron (ferrous sulfate) (tablet) 325 mg (65 mg iron) compl eted IRON, FERROUS GLUCONATE, PO Take by mouth. active Lantus U-100 Insulin com pleted Lexapro completed Lipitor LipitorStatus: Inactive suspended meloxicam 15 mg tablet meloxicam 15 mg tablet; (15 mg) active metFORMIN (GLUCOPHAGE) 1,000 mg tablet Take 1,000 mg by mouth daily with breakfast. active metFORMIN (GLUCOPHAGE) 1000 MG tablet Take [...] times daily (10 MG)Status: Inactive suspende d secukinumab (COSENTYX, 2 SYRINGES, SUBQ) Inject under the skin every 30 (thirty) days. active SENOKOT S, 8.6-50MG (Oral Tablet) SENOKOT S, [...] Allergen Reaction Severity Comment Documented Date Source Status NEOMYCIN-BACITRACN ZN-POLYMYXNB RASH Makes infection worse, skin irritation 09/26/2021 [facility] active LACTOSE GI INTOLERANCE/ NAUSEA/VOMIT ING Moderate 07/27/2017 [facility] active ROSIGLITAZONE GI INTOLERANCE/ NAUSEA/VOMIT ING Mild Other reaction(s): GI Intolerance/Na usea/Vomiting 07/18/2016 [facility] active ALOE RASH/DERMATI TIS Mild 02/25/2016 [facility] active POLYMYXIN B UNKNOWN/GENE ENT AND FAMILY UNABLE TO DEFINE Moderate Other reaction(s): causes infection- increaes irrit 12/07/2012 [facility] active PRAMOXINE HCL Moderate Other reaction(s): causes infection- increaes irrit 12/07/2012 [facility] active BACITRACIN UNKNOWN/GENE ENT AND FAMILY UNABLE TO DEFINE Moderate Other reaction(s): causes infection- increaes irrit [facility] COLISTIMETHATE UNKNOWN/GENE ENT AND FAMILY UNABLE TO DEFINE Moderate Other reaction(s): causes infection- increaes irrit [facility] COLISTIMETHATE SODIUM Moderate Other reaction(s): causes infection- increaes irrit [facility] GRAMICIDIN UNKNOWN/GENE ENT AND FAMILY UNABLE TO DEFINE Moderate Other reaction(s): causes infection- increaes irrit [facility] GRAMICIDIN D Moderate Other reaction(s): causes infection- increaes irrit [facility] LIDOCAINE UNKNOWN/GENE ENT AND FAMILY UNABLE TO DEFINE Moderate [facility] MICONAZOLE UNKNOWN/GENE ENT AND FAMILY UNABLE TO DEFINE Moderate Other reaction(s): Unknown/Patien t and Family Unable to Define [facility] MORPHINE UNKNOWN/GENE ENT AND FAMILY UNABLE TO DEFINE Severe [facility] NEOMYCIN UNKNOWN/GENE ENT AND FAMILY UNABLE TO DEFINE Moderate Other reaction(s): causes infection- increaes irrit [facility] NEOMYCIN SULFATE Moderate Other reaction(s): causes infection- increaes irrit [facility] ALOE BURN RELIEF *DERMATOLOGICALS* ENS_[facility]CT AVANDIA NAUSEA [facility] BACITRACIN-NEOMYCI N-POLYMYXIN OINT [facility] LACTOBACILLUS ENS_[facility] TRIPLE ANTIBIOTIC [facility] TRIPLE ANTIBIOTIC *DERMATOLOGICALS* [facility] Problems Problem Status Onset Date Problem Type Date of Resoluti on Source Arthropathy of left shoulder active 2017-10-02 ProblemAct [facility] Immunizations Vaccine Date Source Lot Number Status Fluzone High-Dose Quadrivale nt 0.7 ML Intramuscular Suspension Prefilled Syringe 04/20/2021 [facility] completed Shingrix 50 MCG Intramuscula r Suspension Reconstituted 02/06/2021 [facility] completed COVID-19 mRNA (ActiveGift) 01/07/2021 [facility] [id number] co mpleted Influenza, high dose seasona l, preservative-free 01/07/2021 [facility] completed Shingrix 50 MCG Intramuscula r Suspension Reconstituted 08/07/2020 [facility] completed COVID-19 mRNA (ActiveGift) 05/09/2020 [facility] co mpleted COVID-19 mRNA (ActiveGift) 04/20/2020 [facility] [id number] co mpleted Fluzone High-Dose 0.5 ML Int ramuscular Suspension Prefilled Syringe 12/27/2019 [facility] [id number] com pleted Fluzone High-Dose 0.5 ML Int ramuscular Suspension Prefilled Syringe 12/14/2018 [facility] [id number] com pleted Fluzone High-Dose 0.5 ML Int ramuscular Suspension Prefilled Syringe 01/05/2018 [facility] [id number] com pleted Encounters Encounter Type Encounter Reason Primary Diagnosis Location Date Ambulatory Pain in left finger(s) Pain in left finger(s) [facility] 10/11/2024 Ambulatory Pain in left finger(s) Pain in left finger(s) [facility] 10/11/2024 Ambulatory [facility] 09/19/2024 Ambulatory [facility] 09/19/2024 Ambulatory Trigger finger, right ring finger Trigger finger, right ring finger [facility] 09/06/2024 Ambulatory [facility] 08/17/2024 Ambulatory Trigger finger, right ring finger Trigger finger, right ring finger [facility] 08/16/2024 Ambulatory [facility] 08/16/2024 Ambulatory Trigger finger, right ring finger Trigger finger, right ring finger [facility] 07/20/2024 Ambulatory [facility] 06/03/2024 Ambulatory [facility] 05/18/2024 Ambulatory [facility] 05/18/2024 Ambulatory [facility] 05/13/2024 Ambulatory [facility] 05/12/2024 Ambulatory JOSE,CHRONIC FATIGUE JOSE,CHRONIC FATIGUE P [facility] 05/11/2024 Ambulatory [facility] 02/10/2024 Ambulatory [facility] 01/26/2024 Ambulatory [facility] 01/15/2024 Ambulatory [facility] 01/13/2024 Ambulatory [facility] 12/18/2023 Ambulatory [facility] 11/30/2023 Ambulatory [facility] 11/02/2023 Ambulatory [facility] 09/28/2023 Ambulatory [facility] 09/28/2023 Ambulatory [facility] 08/21/2023 Ambulatory [facility] 08/20/2023 Ambulatory [facility] 08/20/2023 Ambulatory Primary osteoarthritis, right shoulder Primary osteoarthritis, right shoulder [facility] 07/20/2023 Ambulatory Primary osteoarthritis, right shoulder Primary osteoarthritis, right shoulder [facility] 07/20/2023 Ambulatory RODRÍGUEZ [facility] 05/11/2023 Ambulatory Follow-up Follow-up [facility] 04/13/2023 Ambulatory Trigger finger, right index finger Trigger finger, right index finger [facility] 03/31/2023 Ambulatory Follow-up Follow-up [facility] 01/12/2023 Ambulatory Impingement syndrome of right shoulder Impingement syndrome of right shoulder [facility] 11/17/2022 Ambulatory Impingement syndrome of right shoulder Impingement syndrome of right shoulder [facility] 11/17/2022 Ambulatory Pain Pain [facility] 11/17/2022 Ambulatory Trigger finger, right index finger Trigger finger, right index finger [facility] 11/12/2022 Ambulatory [facility] 06/23/2022 Ambulatory Impingement synd sandra of right shoulder [facility] 06/23/2022 Ambulatory Complete rotator cuff tear or rupture of right shoulder, not specified as traumatic [facility] 05/26/2022 Ambulatory Pain in right shoulder [facility] 04/28/2022 Ambulatory Pain in right shoulder [facility] 04/28/2022 Ambulatory Trigger finger, right middle finger [facility] 11/14/2021 Ambulatory Trigger finger, right middle finger [facility] 10/10/2021 Ambulatory Encounter for ot her preprocedural examination [facility] 09/28/2021 Ambulatory Trigger finger, right middle finger [facility] 2021 Ambulatory Trigger finger, left ring finger [facility] 07/30/2021 Ambulatory Post-op Follow-up [facility] 07/09 Ambulatory Follow-up [facility] 07/04/2021 Ambulatory Encounter for ot her preprocedural examination [facility] 06/29/2021 Ambulatory Trigger finger, left ring finger [facility] 06/06/2021 Ambulatory Pain [facility] 04/23/2021 Ambulatory Trigger finger, left ring finger [facility] 04/09/2021 Ambulatory Trigger finger, left ring finger [facility] 03/19/2021 Ambulatory Trigger finger, left ring finger [facility] 12/25/2020 Care Team Organization Name Specialty Phone Email Start Date End [facility] Narda Horan Primary Care 09/23/2024 [facility] [employer] Primary Care 07/06/2024 [facility] 07/02/2024 [facility] HORAN Primary Care 01/16 [facility] NARDA HORAN Primary Care 11/30/2023 [facility] 11/30/2023 [facility] 11/10/2023 [facility] Narda Horan Primary Care 11/02/2023 [facility] Narda Horan Primary Care 08/20/2023 [facility] Narda Horan Primary Care 05/11/202306/2023 [facility] Narda Horan Primary Care 03/29/2023 [facility]16[facility] 03/11/2023 08/16/19 [facility] Aung Laboy Primary Care 11/04/2022 11/12/2023 [facility] NARDA HORAN Primary Care 022 [facility] Narda Horan Primary Care 05/13/2021 05/13/2021 [facility] NARDA HORAN Primary Care 021 11/14/2021 [facility] 11/30/2020 10/26/2023
--- OUTSIDE RECORDS SUMMARY | 2025-01-11 15:25 | XMS_ITS | Clinical Summary ---
Author Organization [facility] Address [address] [place] [address] Care Team Providers Care Plastic Card Grader Cardroom Name Role Phone Narda Horan APRN Primary [...] Health Maintenance Due Date Last Done Comments Advance Care Planning 1940 COVID-19 Vaccine (#1) 09/18/1947 Quantiferon Gold TB 1952 DTaP/Tdap/Td Vaccines (1 - Tdap) 1961 Pneumococcal Vaccines 50+ (1 of 2 - PCV) 1961 Zoster (Shingles) Vaccine (1 of 2) 1961 DXA Bone Density (Females,Ag es 65 and older) 09/18/2007 RSV Vaccine 50 years and old er and Patients (1 - 1-dose 75+ series) 2017 Influenza Vaccine 10/07/2024 Hepatitis B Vaccines Aged Out No long er eligible based on patient's age to complete this topic Insurance [facility] MEDICARE Member Subscriber Plan / Payer (Ef fective 2018-Present) Name:Clarissa Glynn Relation to Subscriber:Self Name:Clarissa Glynn Payer ID:[id number] (NAIC) Type:Not on file Address: [place] [phone] [facility] MEDICARE Care Teams Plastic Card Grader Cardroom Relationship Specialty Start Date End Date Narda Horan APRN [address] [place] [id number] PCP - General 01/17/19
--- OUTSIDE RECORDS SUMMARY | 2025-01-11 15:25 | XMS_ITS | Encounter Summary ---
Author Organization [facility] Address [address] [place], [place] [phone] Care Team Providers Care Financial Retirement Plan Specialist Name Role Phone Narda Horan APRN Primary Care Provider Narda Horan APRN Unavailable [phone] Wayne Santacruz Unavailable Javier Vitale Unavailable Encounter [...] Description 02/15/2025 11:00 AM EST Office Visit [facility] [address] [place] [phone] Narda oHran APRN [place] [address] [place] [address] 4 mo fu documented as of this encounter Visit Diagnoses Not on filedocumented in this encounter Care Teams Financial Retirement Plan Specialist Relationship Specialty Start Date End Date Narda Horan APRN BC [address] [place] [address] PCP - General 10/13/22 Narda Horan, TRANS ROUTER [address] [place] [address] PCP - Backup PCP Family Medicine 04/09/23 Wayne Santacruz [address] [place] [phone] Ophthalmology 05/18/24 Javier Vitale [address] [place] [phone] Hematology/Oncology 08/16/24 documented as of this encounter
--- OUTSIDE RECORDS SUMMARY | 2025-01-11 15:25 | XMS_ITS | Encounter Summary ---
Author Organization [facility] Address [address] [place] [address] Care Team Providers Care Broaching Machine Set Up Operator Name Role Phone Narda Horan [facility] Primary Care Provider Narda Horan [facility] Unavailable [phone] Wayne Santacruz Unavailable Javier Vitale Unavailable Reason for Visit * Reason Onset Date Comments Refill Request 08/12/2023 Encounter Details Date Type Department Care Team (Late st Contact Info) Description 08/12/2023 Refill [facility] [address] [place] [phone] Narda Horan, [facility] [address] [place] [address] Refill Request Social History Tobacco Use Types [...] encounter Miscellaneous Notes * Telephone Encounter - Marily Cristinoaronalea - 08/12/2023 11:30 AM EDT Call from patient for: Accu-Barbk FastClix Lancets Misc Patient's Preferred Pharmacy: [id number] [facility] & [address] [address] Has the patient contacted the pharmacy for this prescription? {YES: Pt is completely out and need more mariaelena documented in this encounter Plan of Treatment Upcoming Encounters Date Type Department Care Team (Late st Contact Info) Description 02/15/2025 11:00 AM EST Office Visit [address] [phone] Narda Horan, SEGMENT ASSEMBLER [address] [address] 4 mo fu documented as of this encounter Visit Diagnoses Not on filedocumented in this encounter Care Teams Broaching Machine Set Up Operator Relationship Specialty Start Date End Date Narda Horan, SEGMENT ASSEMBLER BC [address] [place] [address] PCP - General 10/13/22 Narda Horan, SEGMENT ASSEMBLER [address] [place] [address] PCP - Backup PCP Family Medicine 04/09/23 Wayne Santacruz [address] [place] [address] Ophthalmology 05/18/24 Javier Vitale [address] [place] [address] Hematology/Oncology 08/16/24 documented as of this encounter
--- OUTSIDE RECORDS SUMMARY | 2025-01-11 15:25 | XMS_ITS | Encounter Summary ---
Author Organization [facility] Address [address] [place], [place] [id number] Care Team Providers Care Spice Miller [employer] Mill Name Role Phone Narda Horan APRN Primary Care Provider Narda Horan APRN Unavailable [phone] Wayne Santacruz Unavailable Javier Vitale Unavailable Encounter [...] Description 02/15/2025 11:00 AM EST Office Visit [facility] [address] [place] [phone] Narda Horan APRN BC [address] [place] [address] 4 mo fu documented as of this encounter Visit Diagnoses Not on filedocumented in this encounter Care Teams Spice Miller [employer] Mill Relationship Specialty Start Date End Date Narda Horan APRN BC [address] [place] [address] PCP - General 10/13/22 Narda Horan, EXTRACORPOREAL TECHNICIAN [address] [place] [address] PCP - Backup PCP Family Medicine 04/09/23 Wayne Santacruz [address] [place] [address] Ophthalmology 05/18/24 Javier Vitale [address] [place] [address] Hematology/Oncology 08/16/24 documented as of this encounter
--- OUTSIDE RECORDS SUMMARY | 2025-01-11 15:25 | XMS_ITS | Encounter Summary ---
Author Organization [facility] Address [address] [place] [address] Care Team Providers Care Coremaking Machine Operator Name Role Phone Narda Horan CAST IRON DRAIN PIPE LAYER BC Primary Care Provider Narda Horan [facility] Unavailable [phone] Wayne Santacruz Unavailable Javier Vitale Unavailable Encounter Details Date Type Department Care Team (Late st Contact Info) Description 09/21/2024 Letter/Form NON FC SA NON FC UNK Provider, [...] Encounters Date Type Department Care Team (Late Contact Info) Description 02/15/2025 11:00 AM EST Office Visit [address] [phone] Narda Horan, CAST IRON DRAIN PIPE LAYER [address] [address] 4 mo fu documented as of this encounter Goals Goal Patient Goal Type Associated Problems Recent Progress Patient-Stated? Author Blood Pressure < 140/90 Blood Pressure 118/68(09/19 11:25 AM EDT) Christine Todd, RN Note: Above is [...] on filedocumented in this encounter Care Teams Coremaking Machine Operator Relationship Specialty Start Date End Date Narda Horan APRN [address] [place] [address] PCP - General 10/13/22 Narda Horan APRN [address] [place] [address] PCP - Backup PCP Family Medicine 04/09/23 Wayne Santacruz [address] [place] [address] Ophthalmology 05/18/24 Javier Vitale [address] [place] [address] Hematology/Oncology 08/16/24 documented as of this encounter
--- OUTSIDE RECORDS SUMMARY | 2025-01-11 15:25 | XMS_ITS | Encounter Summary ---
Author Organization [facility] Address [address] [place], [place] [address] Care Team Providers Care Wardrobe Consultant Name Role Phone Narda Horan [facility] Primary Care Provider Narda Horan [facility] Unavailable [phone] Wayne Santacruz Unavailable Javier Vitale Unavailable Encounter Details Date Type Department Care Team (Late st Contact Info) Description 06/20/2023 Orders Only [address] [phone] Narda Horan, [address] [address] Social History Tobacco Use Types Packs/Day Years [...] Description 02/15/2025 11:00 AM EST Office Visit [address] [phone] Narda Horan, HOTEL ROOM ATTENDANT [address] [place] [address] 4 mo fu documented as of this encounter Visit Diagnoses Not on filedocumented in this encounter Care Teams Wardrobe Consultant Relationship Specialty Start Date End Date Narda Horan, [facility] [address] [place] [address] PCP - General 10/13/22 Narda Horan, [facility] [address] [place] [address] PCP - Backup PCP Family Medicine 04/09/23 Wayne Santacruz [address] [place] [address] Ophthalmology 05/18/24 Javier Vitale [address] [place] [address] Hematology/Oncology 08/16/24 documented as of this encounter
--- OUTSIDE RECORDS SUMMARY | 2025-01-11 15:25 | XMS_ITS | Encounter Summary ---
Author Organization [facility] Address [address] [place], [place] [phone] Care Team Providers Care Tiltrotor Crew Chief Name Role Phone Narda Horan APRN Primary Care Provider Narda Horan APRN Unavailable [phone] Wayne Santacruz Unavailable Javier Vitale Unavailable Encounter [...] Description 02/15/2025 11:00 AM EST Office Visit [facility] [address] [place] [phone] Narda Horan APRN BC [address] [place] [address] 4 mo fu documented as of this encounter Visit Diagnoses Not on filedocumented in this encounter Care Teams Tiltrotor Crew Chief Relationship Specialty Start Date End Date Narda Horan APRN BC [address] [place] [address] PCP - General 10/13/22 Narda Horan, VENDING MACHINE TECHNICIAN [address] [place] [address] PCP - Backup PCP Family Medicine 04/09/23 Wyane Santacruz [address] [place] [address] Ophthalmology 05/18/24 Javier Vitale [address] [place] [address] Hematology/Oncology 08/16/24 documented as of this encounter
--- OUTSIDE RECORDS SUMMARY | 2025-01-11 15:25 | XMS_ITS | Encounter Summary ---
Author Organization [facility] Address [address] [place] [address] Care Team Providers Care Manual Arts Therapist Name Role Phone Narda Horan [facility] Primary Care Provider Narda Horan COMMUNITY RECREATION COORDINATOR Unavailable [phone] Wayne Santacruz Unavailable Javier Vitale Unavailable Reason for Visit * Reason Onset Date Comments Refill Request 04/21/2023 Encounter Details Date Type Department Care Team (Late st Contact Info) Description 04/21/2023 Refill [facility] [address] [place] [address] Narda Horan, [address] [phone] Refill Request Social History Tobacco Use Types [...] from pharmacy for: refill [id number] [facility] [address] [phone] Has the patient contacted the pharmacy for [...] Description 02/15/2025 11:00 AM EST Office Visit [address] [phone] [place] [address] 4 mo fu documented as of this encounter Visit Diagnoses Not on filedocumented in this encounter Care Teams Manual Arts Therapist Relationship Specialty Start Date End Date Narda Horan APRN [address] [place] [address] PCP - General 10/13/22 Narda Horan APRN [address] [place] [address] PCP - Backup PCP Family Medicine 04/09/23 Wayne Santacruz [address] [place] [address] Ophthalmology 05/18/24 Javier Vitale [address] [place] [address] Hematology/Oncology 08/16/24 documented as of this encounter
--- OUTSIDE RECORDS SUMMARY | 2025-01-11 15:25 | XMS_ITS | Encounter Summary ---
Author Organization [facility] Address [address] [place], [place] [address] Care Team Providers Care Conveyor Line Bakery Worker Name Role Phone Narda Horan [facility] Primary Care Provider Narda Horan [facility] Unavailable [phone] Wayne Santacruz Unavailable Javier Vitale Unavailable Encounter Details Date Type Department Care Team (Late st Contact Info) Description 07/29/2024 Orders Only [address] [phone] Narda Horan, [address] [address] Social History Tobacco Use Types Packs/Day Years Used Date Smoking Tobacco: Former Cigarettes 0.5 6 1 [phone] Comments:Smoking Status:No c urrent tobacco use Alcohol [...] as of this encounter Miscellaneous Notes * Result Encounter Note - Narda Horan APRN - 07/29/2024 7:01 PM EDT . documented in this encounter Plan of Treatment Upcoming Encounters Date Type Department Care Team (Late st Contact Info) Description 02/15/2025 11:00 AM EST Office Visit [facility] [address] [place] [phone] Narda Horan, PADMINI [address] [place] [address] 4 mo fu documented as of this [...] is ideal. documented as of this encounter Procedures Procedure Name Priority Date/Time Associated Diagnosis Comments HEMOGLOBIN A1C Routine 07/29/2024 10:58 AM EDT [...] hyperglycemia, with long-term current use of insulin ([facility]) COMPREHENSIVE METABOLIC PANEL WITH GFR Routine 07/29/2024 10:58 AM EDT Diabetes mellitus due to underlying condition with hyperglycemia, with long-term current use of insulin ([facility]) documented in this encounter Results * LIPID PANEL WITH REFLEX TO DIRECT LDL (07/29/2024 10:58 AM EDT) Cholesterol 121 0 - 199 mg/dL [facility] Triglyceride 99 0 - 150 mg/dL [facility] VLDL Cholesterol 20 5 - 40 mg/dL [facility] HDL Cholesterol 50 50 - 80 mg/dL [facility] LDL Cholesterol 51 0 - 100 mg/dL [facility] Cholesterol Non-HDL 71 0 - 130 mg/dl [facility] CHOL/HDL Ratio 2.4 [facility] 07/29/2024 10:5 8 AM EDT 07/29/2024 8:32 PM EDT Narrative [facility] - 07/29/2024 9:50 PM EDT Fasting reference interval. Optimum Lipid testing results require a 12-hour fasting specimen. If a non-fasting specimen was collected, consider repeat testing on a fasting specimen if clinically indicated.Non-Fasting Reference Ranges:Cholesterol < 190 mg/dLTriglycerides < 174 mg/dLHDL > 40 mg/dLLDL-C < 115 mg/dLNon-HDL-C < 149 mg/dL FASTING: UNKNOWN Testing performed at [facility], [address] [place] [address], , Gallery Assistant: Dilcia Kapoor MD CL#[id number] Narda Horan MACHINE PROGRAMMER LABORATORY Final R esult Performing Organization Address [facility] Co de Phone Number [facility] [address] [place] [address], * ALBUMIN (MICROALBUMIN), RANDOM URINE, WITH CREATININE (07/29/2024 10:58 AM EDT) Albumin (Urine) 23 0 - 23 mg/L [facility] Creatinine (Urine) 192 60 - 200 mg/dL [facility] Microalbumin/Cr eat Ratio (Urine) 12 0 - 30 [facility] 07/29/2024 10:5 8 AM EDT 07/29/2024 8:32 PM EDT Narrative [facility] - 07/29/2024 11:04 PM EDT Testing performed at [facility], [address] [place] [address], , Gallery Assistant: Dilcia Kapoor MD CL#[id number] Narda Horan MACHINE PROGRAMMER LABORATORY Final R esult Performing Organization Address [facility] Co de Phone Number [facility] [address] [place] [address], * (ABNORMAL) HEMOGLOBIN A1C (07/29/2024 10:58 AM EDT) Hemoglobin A1C 7.0(H) 4.3 - 6.1 %A1C [facility] Comment: 5.7-6.4 Increased Risk of Diabetes >6.4 Consistent with Diabetes The [place] [employer] recommends a goal of less than 7% for diabetic patients. 07/29/2024 10:5 8 AM EDT 07/29/2024 8:32 PM EDT Narrative [facility] - 07/29/2024 9:05 PM EDT Testing performed at [facility], [address] [facility] [place], [place] [address], , Gallery Assistant: Dilcia Kapoor MD CL#[id number] Narda Horan APRN LABORATORY Final R esult [facility] [address] [place] [address], * (ABNORMAL) COMPREHENSIVE METABOLIC PANEL WITH GFR (07/29/2024 10:58 AM EDT) Glucose 110(H) 65 - 99 mg/dL [facility] Comment:[facility]asting Reference [facility] U[facility] Nitrogen Blood (BUN) 12 8 - 23 mg/dL [facility] Creatinine 0.7 0.4 - 1.1 mg/dL [facility] GFR 87 >=60 [facility] BUN/Creatinine Ratio 17 6 - 25 [facility] Sodium 141 133 - 145 mmol/L [facility] Potassium 5.1 3.3 - 5.3 mmol/L [facility] Comment:Specimen exhibits he molysis. Results may be effected. Chloride 101 96 - 108 mmol/L [facility] Bicarbonate 28 22 - 32 mmol/L [facility] Anion gap 3 12 [facility] Calcium 10.0 8.6 - 10.5 mg/dL [facility] Protein Total (Serum) 7.4 6.2 - 8.2 g/dL [facility] Albumin 3.9 3.5 - 5.2 g/dl [facility] Alkaline phosphatase 116 35 - 130 U/L [facility] AST (SGOT) 12 4 - 32 U/L [facility] ALT (SGPT) 7 4 - 33 U/L [facility] Bilirubin Total 0.4 0.1 - 1.0 mg/dL [facility] Globulin 3.5 1.4 - 4.8 g/dl [facility] Albumin/Globulin 1 1 - 3 [facility] Osmolality 273 253 - 285 mOsm/kg [facility] 07/29/2024 10:5 8 AM EDT 07/29/2024 8:32 PM EDT Narrative [facility] - 07/29/2024 10:01 PM EDT FASTING: UNKNOWN Testing performed at [facility], [address] [facility] [place], [place] [address], , Gallery Assistant: Dilcia Kapoor MD CL#[id number] Fasting reference range.Optimum Glucose evaluation is recommended on a Fasting sample. Please interpret non-fasting results with caution.Non-fasting glucose can be interpreted as follows:< 140 [id number]: At risk for developing diabetes> 200: Suggests Diabetes Narda Horan [facility] Final R esult [facility] [address] [facility] [address], documented in this encounter Visit Diagnoses Diagnosis Diabetes mellitus due to underlying condition with hyperglycemia, with long-term current use of insulin (HCC) documented in this encounter Care Teams Conveyor Line Bakery Worker Relationship Specialty Start Date End Date Narda Horan [facility] [address] [place] [address] PCP - General 10/13/22 Narda Horan [facility] [address] [place] [address] PCP - Backup PCP Family Medicine 04/09/23 Wayne Santacruz [address] [place] [address] Ophthalmology 05/18/24 Javier Vitale [address] [place] [address] Hematology/Oncology 08/16/24 documented as of this encounter
--- OUTSIDE RECORDS SUMMARY | 2025-01-11 15:25 | XMS_ITS | Encounter Summary ---
Author Organization [facility] Address [address] [place] [address] Care Team Providers Care Medical Pathologist Name Role Phone Narda Horan [facility] Primary Care Provider Narda Horan BOILERS AND PRESSURE VESSELS INSPECTOR Unavailable [phone] Wayne Santacruz Unavailable Javier Vitale Unavailable Reason for Visit * Reason Onset Date Comments Refill Request 04/28/2023 Encounter Details Date Type Department Care Team (Late st Contact Info) Description 04/28/2023 Refill [facility] [address] [place] [address] Narda Horan, [address] [phone] Refill Request Social History Tobacco Use Types [...] pharmacy for: Furosemide 20mg [id number] [facility] [address] [phone] Has the patient contacted the pharmacy for [...] Description 02/15/2025 11:00 AM EST Office Visit [address] [phone] [place] [address] 4 mo fu documented as of this encounter Visit Diagnoses Not on filedocumented in this encounter Care Teams Medical Pathologist Relationship Specialty Start Date End Date Narda Hoarn APRN [address] [place] [address] PCP - General 10/13/22 Narda Horan APRN [address] [place] [address] PCP - Backup PCP Family Medicine 04/09/23 Wayne Santacruz [address] [place] [address] Ophthalmology 05/18/24 Javier Vitale [address] [place] [address] Hematology/Oncology 08/16/24 documented as of this encounter
--- OUTSIDE RECORDS SUMMARY | 2025-01-11 15:25 | XMS_ITS | Encounter Summary ---
Author Organization [facility] Address [address] [place], [place] [address] Care Team Providers Care Communications Coordinator Name Role Phone Narda Horan [facility] Primary Care Provider Narda Horan MAINTENANCE MECHANIC ENGINE Unavailable [phone] Wayne Santacruz Unavailable Javier Vitale Unavailable Reason for Visit * Reason Onset Date Comments Refill Request 04/27/2023 Encounter Details Date Type Department Care Team (Late st Contact Info) Description 04/27/2023 [facility] [address] [place] [address] Narda Horan, [address] [phone] Refill Request Social History Tobacco Use Types [...] Description 02/15/2025 11:00 AM EST Office Visit [address] [phone] Narda Horan, MAINTENANCE MECHANIC ENGINE [address] [place] [address] 4 mo fu documented as of this encounter Visit Diagnoses Not on filedocumented in this encounter Care Teams Communications Coordinator Relationship Specialty Start Date End Date Narda Horan, MAINTENANCE MECHANIC ENGINE [address] [place] [address] PCP - General 10/13/22 Narda Horan, MAINTENANCE MECHANIC ENGINE [address] [place] [address] PCP - Backup PCP Family Medicine 04/09/23 Wayne Santacruz [address] [place] [address] Ophthalmology 05/18/24 Javier Vitale [address] [place] [address] [phone] Hematology/Oncology 08/16/24 documented as of this encounter
--- OUTSIDE RECORDS SUMMARY | 2025-01-11 15:25 | XMS_ITS | Encounter Summary ---
Author Organization [facility] Address [address] [place] [address] Care Team Providers Care Caddy/Caddie Supervisor Name Role Phone Narda Horan [facility] Primary Care Provider Narda Horan [facility] Unavailable [phone] Wayne Santacruz Unavailable Javier Vitale Unavailable Reason for Visit * Reason Comments Pre Op Exam Encounter Details Date Type Department Care Team (Late st Contact Info) Description 08/16/2024 Telephone [facility] [address] [place] [address] Narda Horan, [address] [address] Pre Op Exam Social History Tobacco Use Types Packs/Day Years Used Date Smoking Tobacco: Former Cigarettes 0.5 6 1 967 - 1973 Comments:Smoking Status:No c urrent tobacco use Alcohol [...] encounter Miscellaneous Notes * Telephone Encounter - Adriana Simental MA - 08/17/2024 2:48 PM EDT Reviewed, Noted. * Telephone Encounter - Dai Vanegas - 08/16/2024 2:03 PM EDT Surgeon's office called back. They are having a problem getting the pre-op paperwork to use - it won't to through as our fax is constantly busy. They did tell me that pt. has a copy that she will bring with her. * Telephone Encounter - Adriana Simental MA - 08/16/2024 1:38 PM EDT Received office note, note pre-op request, called office back to request pre-op paperwork they willfax. * Telephone Encounter - Adriana Simental MA - 08/16/2024 10:40 AM EDT Spoke with Dr Vitale's office, they will fax over pre-op paperwork * Telephone Encounter - Cha Brooks - 08/16/2024 9:14 AM EDT We have scheduled this patient for a pre-op appointment with provider kaylie shook aprn on 08/17/24We@2:45PM. Practice staff to: Please confirm pre-op paperwork has been received prior to the visit. Pre Op Surgeon/facility phone number: [facility] [phone] Surgeon's name: Dr. Javier Vitale Type of surgery: right ring finger a1 release Date of surgery: 08/29/24 Facility where surgery will take place: [facility] documented in this encounter Plan of Treatment Upcoming Encounters Date Type Department Care Team (Late st Contact Info) Description 02/15/2025 11:00 AM EST Office Visit [facility] [address] [place] [phone] Narda Horan, PATIENT REGISTRATION REPRESENTATIVE [address] [place] [address] 4 mo fu documented as of this [...] Component 7(07/29/2024 10:58 AM EDT) Christine Todd, RN Note: Above [...] on filedocumented in this encounter Care Teams Caddy/Caddie Supervisor Relationship Specialty Start Date End Date Narda Horan APRN BC [address] [place] [address] PCP - General 10/13/22 Narda Horan APRN [address] [place] [address] PCP - Backup PCP Family Medicine 04/09/23 Wayne Santacruz [address] [place] [address] Ophthalmology 05/18/24 Javier Vitale [address] [place] [address] Hematology/Oncology 08/16/24 documented as of this encounter
--- OUTSIDE RECORDS SUMMARY | 2025-01-11 15:25 | XMS_ITS | Encounter Summary ---
Author Organization [facility] Address [address] [place] [address] Care Team Providers Care Diploma Maker Name Role Phone Narda Horan [facility] Primary Care Provider Narda Horan CHOCOLATE FINISHER Unavailable [phone] Wayne Santacruz Unavailable Javier Vitale Unavailable Reason for Visit * Reason Onset Date Comments Refill Request 06/01/2024 Encounter Details Date Type Department Care Team (Late st Contact Info) Description 06/01/2024 Refill [facility] [address] [place] [address] Narda Horan, [address] [address] Refill Request Social History Tobacco Use Types [...] Description 02/15/2025 11:00 AM EST Office Visit [facility] [address] [place] [address] Narda Horan, CHOCOLATE FINISHER [address] [place] [address] 4 mo fu documented as of this [...] on filedocumented in this encounter Care Teams Diploma Maker Relationship Specialty Start Date End Date Narda Horan APRN [address] [place] [address] PCP - General 10/13/22 Narda Horan APRN [address] [place] [address] PCP - Backup PCP Family Medicine 04/09/23 Wayne Santacruz [address] [place] [id number] Ophthalmology 05/18/24 Javier Vitale [address] [place] [id number] Hematology/Oncology 08/16/24 documented as of this encounter
--- OUTSIDE RECORDS SUMMARY | 2025-01-11 15:25 | XMS_ITS | Encounter Summary ---
Author Organization [facility] Address [address] [place], [place] [id number] Care Team Providers Care Passenger Service Supervisor Name Role Phone Narda Horan APRN Primary Care Provider Narda Horan APRN Unavailable [phone] Wayne Santacruz Unavailable Javier Vitale Unavailable Encounter [...] Description 02/15/2025 11:00 AM EST Office Visit [facility] [address] [place] [phone] aNrda Hroan APRN BC [address] [place] [address] 4 mo fu documented as of this encounter Visit Diagnoses Not on filedocumented in this encounter Care Teams Passenger Service Supervisor Relationship Specialty Start Date End Date Narda Horan APRN [facility] [address] [place] [address] PCP - General 10/13/22 Narda Horan, BIOANALYST [address] [place] [address] PCP - Backup PCP Family Medicine 04/09/23 Wayne Santacruz [address] [place] [phone] Ophthalmology 05/18/24 Javier Vitale [address] [place] [phone] Hematology/Oncology 08/16/24 documented as of this encounter
--- OUTSIDE RECORDS SUMMARY | 2025-01-11 15:25 | XMS_ITS | Encounter Summary ---
Author Organization [facility] Address [address] [place], [place] [address] Care Team Providers Care Tourist Cabin Keeper Name Role Phone Narda Horan [facility] Primary Care Provider Narda Horan [facility] Unavailable [phone] Wayne Santacruz Unavailable Javier Vitale Unavailable Encounter Details Date Type Department Care Team (Late st Contact Info) Description 04/27/2023 Orders Only [address] [phone] Narda Horan, [address] [address] Medications Social History Tobacco Use Types Packs/Day [...] Description 02/15/2025 11:00 AM EST Office Visit [address] [phone] Narda Horan, [facility] [address] [place] [address] 4 mo fu documented as of this encounter Visit Diagnoses Not on filedocumented in this encounter Care Teams Tourist Cabin Keeper Relationship Specialty Start Date End Date Narda Horan, [facility] [address] [place] [address] PCP - General 10/13/22 Narda Horan, [facility] [address] [place] [address] PCP - Backup PCP Family Medicine 04/09/23 Wayne Santacruz [address] [place] [id number] Ophthalmology 05/18/24 Javier Vitale [address] [place] [phone] Hematology/Oncology 08/16/24 documented as of this encounter
== END 2025-01-11 13:21 | disposition home or self-care (01) ==
LOC: HO.ENCR 12:45
PROVIDERS: Visit Provider Internal Medicine
DX: E11.9 Type 2 diabetes mellitus without complications (principal); Z79.4 Long term (current) use of insulin

== ENCOUNTER → 2025-01-11 12:44 | Outpatient (BNVA) | payer MEDICARE, SELFPAY | PROVIDERS: Visit Provider Internal Medicine | DX: E11.9 Type 2 diabetes mellitus without complications (principal); Z79.4 Long term (current) use of insulin | CPT/HCPCS: 82947; 83036; 99212 ==